=== PATIENT | female | born 1945 | race Caucasian/White ===

== ENCOUNTER 2021-12-08 14:01 | Emergency (ER) | payer MEDICARE, BC, SELFPAY ==
[2021-12-08 14:13] VITALS: BP 151/75; PULSE 71; RESP 20; TEMP 36.8; O2SAT 97; BMI 25.7
--- NOTE | 2021-12-08 14:35 | ED.GENADULT ---
HPI - General Adult General Time Seen by Provider: 14:35 Date Seen: 12/08/21 Chief complaint: Cough Stated complaint: Chest Tightness Time Seen by Provider: 12/08/21 14:13 Source: patient Mode of arrival: ambulatory Limitations: no limitations History of Present Illness HPI narrative: Patient is a 76 year white female who is very healthy, presents with a mild draw throat, postnasal drainage, cough over the last couple of days last night she coughed to the point she had trouble sleeping. She has no history of respiratory illness her respiratory disease. No asthma. No COPD. She has had no chest pain, no shortness of breath, no leg swelling or edema. She plans on seeing her regular doctor on Wednesday Related Data Previous Rx's Medication Instructions Recorded prednisone 20 mg tablet 20 mg PO BID #6 tabs 12/08/21 Allergies Allergy/AdvReac Type Severity Reaction Status Date / Time Sulfa (Sulfonamide Allergy Verified 12/08/21 14:21 Antibiotics) Review of Systems Status of ROS: Reports: 6 or more systems reviewed and unremarkable except as noted in History and below Exam Narrative: Exam Narrative: Objective: Patient's vital signs are largely unremarkable O2 sat is excellent HEENT is unremarkable Chest is clear no rales or wheezing pulse is regular good peripheral perfusion noted patient has a normal mental status, noncyanotic Const: Vital Signs, click to edit/add: Vital Signs - 24 hr 12/08/21 14:13 Temperature 98.2 F Pulse Rate [Pulse Oximeter] 71 Respiratory Rate 20 Blood Pressure [Ri ght Upper Arm] 151/75 H Pulse Oximetry 97 Oxygen Delivery Me thod Room Air Course Vital Signs Vital signs: Initial Vital Signs Temperature 98.2 F 12/08/21 14:13 Temperature Source Temporal Artery Scan 12/08/21 14:13 Pulse Rate 71 12/08/21 14:13 Pulse Rhythm 12/08/21 14:13 Respiratory Rate 20 12/08/21 14:13 Blood Pressure 151/75 H 12/08/21 14:13 Blood Pressure Mean 100 12/08/21 14:13 Pulse Oximetry 97 12/08/21 14:13 Oxygen Delivery Method 12/08/21 14:13 Vital Signs Temperature 98.2 F 12/08/21 14:13 Pulse Rate 71 12/08/21 14:13 Respiratory Rate 20 12/08/21 14:13 Blood Pressure 151/75 H 12/08/21 14:13 Pulse Oximetry 97 12/08/21 14:13 Oxygen Delivery Method 12/08/21 14:13 Temperature 98.2 F 12/08/21 14:13 Pulse Rate 71 12/08/21 14:13 Respiratory Rate 20 12/08/21 14:13 Blood Pressure 151/75 H 12/08/21 14:13 Pulse Oximetry 97 12/08/21 14:13 Oxygen Delivery Method 12/08/21 14:13 Medical Decision Making MDM Narrative Medical decision making narrative: Patient has had postnasal drainage some mild irritation in her throat and cough. Examination appears unremarkable, at this point I think this is an upper respiratory infection, but what may help is a couple day course of prednisone we will give her 20 mg b.i.d. x3 days, follow-up with her primary care doctor on Wednesday as planned. Lots of fluids rest Tylenol as needed and follow up sooner problems or concerns. Discharge Plan Discharge Clinical Impression: Acute cough, Acute upper respiratory infection Patient Disposition: Home, Self-Care Condition: Stable Additional Instructions: Rest, hydration, Tylenol as needed, prednisone 20 mg b.i.d. x3 days, update regular doctor Wednesday as planned, return sooner as needed Activity Level: No Restrictions Discharge Diet: Regular Prescriptions: New prednisone 20 mg tablet 20 mg PO BID Qty: 6 0RF Follow Up/Referrals: Colleen Du MD [Primary Care Provider] - Stand Alone Forms: [employer] Info Instructions
== END 2021-12-08 15:05 | disposition home or self-care (01) ==
LOC: ED 14:47
PROVIDERS: Emergency Provider Family Medicine; PCP Family Medicine
DX: J06.9 Acute upper respiratory infection, unspecified (principal)
CPT/HCPCS: 99283

== ENCOUNTER 2022-03-25 11:22 | Emergency (ER) | payer MEDICARE, BC, SELFPAY ==
[2022-03-25 11:27] VITALS: BP 205/72; PULSE 73; RESP 14; TEMP 36.4; O2SAT 100; BMI 25.5
[2022-03-25 11:47] LABS: Appearance Urine Clear (Clear); Bilirubin Urine Negative (Negative); Blood Urine Trace-lysed (Negative); Color Urine Yellow (Yellow); Glucose Urine Negative (Negative); Ketones Urine Negative (Negative); Leukocyte Esterase Urine 3+ (Negative); Nitrite Urine Positive (Negative); Protein Urine Negative (Negative); Specific Gravity Urine <= 1.005 (1.000-1.030); Urobilinogen Urine 0.2 (0.2-1.0); pH Urine 5.5 (5.0-8.5)
--- NOTE | 2022-03-25 11:53 | ED_ITS ---
HPI - General Adult General Time Seen by Provider: 11:53 Date Seen: 03/25/22 Chief complaint: Urogenital Problems, Female Stated complaint: Likely bladder infection Time Seen by Provider: 03/25/22 11:43 Source: patient Mode of arrival: ambulatory Limitations: no limitations History of Present Illness HPI narrative: Patient is a 76 year white female who is very pleasant who has a known rectocele, and has had occasional UTI in the past. Yesterday she did not feel quite right. She did have marked fever rigors. Did not have flank pain. But did have some mild suprapubic discomfort and urinary frequency, burning. 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 She had UTIs when she was flying more, but none recently. No vomiting or nausea. Related Data Previous Rx's Medication Instructions Recorded ciprofloxacin HCl 250 mg tablet 250 mg PO BID #10 tabs 03/25/22 (Cipro) Allergies Allergy/AdvReac Type Severity Reaction Status Date / Time nitrofurantoin Allergy rash, Verified 02/06/22 09:56 itching Sulfa (Sulfonamide Allergy Verified 02/06/22 09:56 Antibiotics) Review of Systems Status of ROS: Reports: 6 or more systems reviewed and unremarkable except as noted in History and below PFSH PFSH Medical History No significant past medical history Otalgia Surgical History H/O: hysterectomy History of shoulder surgery Social History Smoking Status: Never smoker How often do you have a drink containing alcohol: 2-4 times a month AUDIT-C Alcohol total score: 2 Non-prescribed substance use: denies use Exam Narrative: Exam Narrative: Objective: Vital signs unremarkable other than blood pressure elevated Patient will monitor blood pressure over the next couple of days and discuss that with her doctor. Negative CVA tenderness mild suprapubic tenderness patient is alert or x3 no distress, afebrile Const: Vital Signs, click to edit/add: Vital Signs - 24 hr 03/25/22 11:27 Temperature 97.6 F Pulse Rate [Pulse Oximeter] 73 Respiratory Rate 14 Blood Pressure [Ri ght Upper Arm] 205/72 H Pulse Oximetry 100 Oxygen Delivery Me thod Room Air Course Vital Signs Vital signs: Initial Vital Signs Temperature 97.6 F 03/25/22 11:27 Temperature Source Temporal Artery Scan 03/25/22 11:27 Pulse Rate 73 03/25/22 11:27 Respiratory Rate 14 03/25/22 11:27 Blood Pressure 205/72 H 03/25/22 11:27 Blood Pressure Mean 116 03/25/22 11:27 Pulse Oximetry 100 03/25/22 11:27 Oxygen Delivery Method 03/25/22 11:27 Vital Signs Temperature 97.6 F 03/25/22 11:27 Pulse Rate 73 03/25/22 11:27 Respiratory Rate 14 03/25/22 11:27 Blood Pressure 205/72 H 03/25/22 11:27 Pulse Oximetry 100 03/25/22 11:27 Oxygen Delivery Method 03/25/22 11:27 Temperature 97.6 F 03/25/22 11:27 Pulse Rate 73 03/25/22 11:27 Respiratory Rate 14 03/25/22 11:27 Blood Pressure 205/72 H 03/25/22 11:27 Pulse Oximetry 100 03/25/22 11:27 Oxygen Delivery Method 03/25/22 11:27 Medical Decision Making MDM Narrative Medical decision making narrative: Patient is symptomatic with urinary tract infection very likely. Will check a urinalysis. Urine culture. Will treat with Rocephin IM and Cipro orally. Patient should follow-up she is not better in the next 12:48 p.m. as needed. She was comfortable plan. Lab Data Labs: Lab Results 03/25/22 Range/Units 11:23 Urine Color Yellow (Yellow) Urine Appearance Clear (Clear) Urine pH 5.5 (5.0-8.5) Ur Specific [place] <= 1.005 (1.000-1.030) Urine Protein Negative (Negative) Urine Glucose (UA) Negative (Negative) Urine Ketones Negative (Negative) Urine Blood Trace-lysed A (Negative) Urine Nitrite Positive A (Negative) Urine Bilirubin Negative (Negative) Urine Urobilinogen 0.2 (0.2-1.0) Ur Leukocyte Esterase 3+ A (Negative) Urine RBC 0-2 (0-2) Urine WBC 10-25 A (0-5) Ur Squamous Epith Cells Few (None-Few) Urine Bacteria Many A (None) Discharge Plan Discharge Clinical Impression: Urinary tract infection Patient Disposition: Home, Self-Care Condition: Stable Instructions: Urinary Tract Infection in Older Adults (ED) Additional Instructions: Light activity, rest fluids, Cipro 2 times a day start today x5 days. Update regular physician as needed, return to ED not improving in the next 12:48 p.m.. Activity Level: Light activity Discharge Diet: Regular Prescriptions: New ciprofloxacin HCl [Cipro] 250 mg tablet 250 mg PO BID Qty: 10 0RF Follow Up/Referrals: Colleen Du MD [Primary Care Provider] - Stand Alone Forms: [employer] Info Instructions
[2022-03-25 12:01] LABS: Bacteria Urine Many; RBC Urine 0-2 (0-2); Squamous Epithelial Cell Urine Few (None-Few)
--- OUTSIDE RECORDS SUMMARY | 2022-03-25 12:02 | XMS_ITS | Clinical Summary ---
:1945 Author Organization [facility] Address [place] [address] Care Team Providers Name Role Phone Colleen Du MD Primary Care Provider [phone] Sanjana Morin AuD Unavailable [phone] Allergies Active Allergy Reactions Severity Noted Date Comments Nitrofurantoin Itching 03/20/2008 Sulfa (Sulfonamide Antibiotics) 7 Medications Medication Sig Dispensed Refills Start Date End Date Status multivitamin (MVI) Take 1 tablet by 0 09/06/2009 Active tabletIndications: mouth once daily. Routine general medical examination at a health care facility cholecalciferol Take 1 capsule by 0 02/04/2016 Active (VITAMIN D-3) 2,000 mouth once daily. unit capsule cyanocobalamin (VITAMIN Daily 0 Active B12) 500 mcg tablet aluminum chloride Apply topically 50 mL 3 12/12/2021 Active (Drysol) 20 % external to affected solutionIndications: area(s) at Excessive sweating, bedtime. local fluticasone (50 mcg per Inhale 2 Sprays 16 g 0 12/12/2021 Active actuation) nasal to both nostrils solution once daily. (FLONASE)Indications: Acute non-recurrent frontal sinusitis Active Problems Problem Noted Date Sensorineural hearing loss, bilateral 01/14/2017 Screen for colon cancer 08/12/2010 Overview: Colonoscopy 07/2010 normal repeat in 10 y ears Acute gastritis without mention of hemorrhage 04/29/19 11 Reflux esophagitis 06/06/2009 Overview: EGD 07/2008 Reactive gastropathy Rectocele 05/29/2008 Urinary incontinence, stress 05/29/2008 Immunizations Name Administration Dates Next Due AMB INFLUENZA IIV3 (AGE 65+ YRS) PF 02/12/2018 (Flu Clinic Only) AMB Influenza, IIV3 (Age >=3 years) 02/10/2012 Preserve Free (Flu Clinic Only) AMB Influenza, IIV3 (Age >=3 02/09/2011, 03/06/2010, 009, years)(Flu Clinic Only) 03/27/2008 COVID-19 vaccine (dilitronics 07/06/2020 30mcg/0.3mL) PF, MDV Influenza A (H1N1), Inactivated 06/06/2009 Influenza A (H1N1), Inactivated (Age 0206/06/2009 >=3 Years) Influenza, High-dose Inactivated 02/04/2016, 01/29/2015, 05/2013 Influenza, High-dose Quadrivalent 01/25/2021 Inactivated Influenza, IIV3 (Age 6-35 mos) 02/10/2012, 02/09/2011 Influenza, IIV3 (Age >=3 years) 01/24/2013, 03/06/2010, 01/24, 03/27/2008, 02/25/2007, 03/01/2006, 03/14/2005, 03/09/2003 Influenza, IIV4 06/06/2009 Influenza, IIV4 (=>6mos) MDV 01/22/2020 Influenza, Inactivated IIV3 (Age 65+ 01/27/2019, 02/04/2017 Years) Preserv Free Pneumococcal Poly,23-Valent 02/10/2012 (Pneumovax) Pneumococcal conj 13-Valent (Prevnar 02/04/2016 13) Td (Age >=7 Years) 12/07/2018, 08/19/1994 Tdap 05/14/2008 Zoster (Shingrix-RZV, recombinant) 07/22/2018, 05/21/2018 Zoster (Zostavax-ZVL, live) 02/25/2007 Family History Medical History Relation Name Comments Cancer Brother 7 lung x2, brain Cancer Brother 8 Brain Cancer Father Lung Aortic aneurysm Mother AAA, at 88 Diabetes Mother age 82 Cancer-breast Other 1 niece x3 Cancer-breast Other 2 Cancer-colon Other 2 niece, nephew Cancer-breast Paternal Aunt Cancer-breast Sister 3 Cancer Sister 4 Lung Relation Name Status Comments Brother 1 Vito (Age 65) Lung CA Brother 2 Vijay (Age 37) Cerberal Hemmo rage Brother 3 Osmar Alive Brother 4 Ronald (Age 62) Cancer Brother 5 Jaxson Alive Brother 6 Regulo (Age 72) Brain Tumor Brother 7 Brother 8 Daughter 1 Nanda Alive Daughter 2 Jessie Alive Father (Age 78) Lung & Pancrea tic Cancer Mother (Age 88) Other 1 niece Other 2 Paternal Aunt Sister 1 Miley (Age 75) Lung CA Sister 2 Madisyn (Age 40) Breast CA Sister 3 Sister 4 Social History Tobacco Use Types Packs/Day Years Used Date Never Smoker Smokeless Tobacco: Never Used Tobacco Cessation: Counseling Given: Yes Alcohol Use Standard Drinks/Week Comments Yes 1.7 (1 standard drink = 0.6 oz pure very little-- 1-2 drinks per week alcohol) Alcohol Habits Answer Date Recorded How often do you have a drink 2-4 times a month 03/12/2020 containing alcohol? How many drinks containing alcohol do 1 or 2 you have on a typical day when you are drinking? How often do you have six or more Never 2019 drinks on one occasion? Comment: very little-- 1-2 drinks per week 2013 Sex Assigned at Date Recorded Not on file Obstetrics History Para Term AB IAB SAB Ectopic Multiple Living Live Births 2 2 2 2 Date Outcome GA Total Labor/2nd/3rd Weight Sex Delivery Anes PTL Teresa A 1 A5 Name Clin Labor Term Term Last Filed Vital Signs Vital Sign Reading Time Taken Comments Blood Pressure 149/76 12/12/2021 8:45 AM CDT Pulse 71 12/12/2021 8:41 AM CDT Temperature 36.9 ??C (98.5 ??F) 05/17/2020 8:35 AM [employer] Respiratory Rate 18 09/28/2014 11:15 AM CDT Oxygen Saturation 99% 12/12/2021 8:41 AM CDT Inhaled Oxygen Concentration - - Weight 66 kg (145 lb 6.4 oz) 12/12/2021 8:41 AM CDT Height 160 cm (5' 2.99) 04/11/2021 8:39 AM [employer] Body Mass Index 25.76 04/11/2021 8:39 AM [employer] Plan of Treatment Upcoming Encounters Date Type Specialty Care Team Description 04/14/2022 Office Visit Colleen Du MD [address] [place] [id number] (Wo rk) 04/14/2022 Ancillary Procedure Health Maintenance Due Date Last Done Comments COVID-19 vaccine series (4 - 03/24/2021 01/27/2021, 021, Booster for Pfizer series) 07/06/2020 Influenza for age 65+ 12/25/2021 01/25/2021, 01/22/2020, 01/27/2019, Additional history exists BMI (ht and wt on same day) for 04/11/2022 04/11/2021, 04/27, age 18+ 03/12/2020, Additional history exists Depression screening for age 12+ 04/11/2022 04/11/2021, , 03/12/2020, Additional history exists Medicare Wellness for age 65+ 04/11/2022 04/11/2021, 2019, 03/09/2019, Additional history exists Tetanus booster 12/07/2028 12/07/2018, 05/14/2008, 08/19/1994 Tdap Completed 05/14/2008 Pneumococcal series for age 65+ Completed 02/04/2016, 01/24 Zoster (shingles) series for age Completed 07/22/2018, , 50+ 02/25/2007 Hepatitis C screening for age Completed 03/09/2019 18-79 DEXA/DXA scan for age 65+ Completed 03/13/2020, 02/23/2017 , 06/23/2012, Additional history exists Results Not on filefrom Last 3 Months Insurance Payer Benefit Plan / Subscriber ID Effective Dates Phone Addre ss Type Group BLUE CROSS MR BLUE CROSS [id number] 2021-Present [address] [address] [place] [facility] [place] MR PB ONLY [id number] Advance Directives Documents on File Type Date Recorded Patient Outpatient Surgery Rn Explanati on Healthcare Directive 11/19/2015 8:24 AM DYAN ESCOBAR, 06/19/2009 Care Teams Res Counselor Relationship Specialty Start Date End Date Colleen Du MD PCP - General 09/07/05 [address] [place] [address] Sanjana Morin AuD Audiology 01/14/17 [address] [place] [place] [address]
[2022-03-25] MEDS: cefTRIAXone 250 MG VIAL IM (12:14)
[2022-03-25] MEDS: LIDOCAINE 1% 5 ml (pf) 5 ML VIAL 0.9 ML IM (12:14)
== END 2022-03-25 12:16 | disposition home or self-care (01) ==
LOC: ED 12:00
PROVIDERS: Emergency Provider Family Medicine; PCP Family Medicine
DX: N39.0 Urinary tract infection, site not specified (principal)
CPT/HCPCS: 81001; 87086; 87186; 96372; 99283; J0696

== ENCOUNTER 2023-06-09 08:48 | Outpatient (CLI) | payer MEDICARE, BC, SELFPAY ==
--- OUTSIDE RECORDS SUMMARY | 2023-06-09 08:51 | XMS_ITS | Clinical Summary ---
Author Name Unknown Organization [facility] Address [place], [place] [address] Care Team Providers Care Rod Puller Name Role Phone Colleen Du MD Primary Care Provide r Sanjana Morin Unavailable [phone] Allergies Active Allergy Reactions Criticality Noted Date Comments Nitrofurantoin Itching 03/20/2008 Sulfa (Sulfonamide Antibiotics) 10/25 Medications Medication Sig Dispensed Refills Start Date End Date Status multivitamin (MVI) tabletIndications: Routine general medical examination at a health care facility Take 1 tablet by mouth once daily. 0 09/06/2009 Active cholecalciferol (VITAMIN D-3) 2,000 unit capsule Take 1 capsule by mouth once daily. 0 02/04/2016 Active cyanocobalamin (VITAMIN B12) 500 mcg tablet Daily 0 Active azithromycin (Zithromax Z-Reagan) 250 mg tabletIndications: Purulent postnasal drainage Take 500 mg today and then 250 mg days 2-5 6 Tablet 0 05/11/2023 Active fluticasone (50 mcg per actuation) nasal solution (FLONASE)Indicatio ns:Acute non-recurrent frontal sinusitis Inhale 2 Sprays to both nostrils once daily. 16 g 0 12/12/2021 05/11/2023 Discontinued (*Med complete/Reg imen complete/Lev el of care change) Active Problems Problem Noted Date Diagnosed Date Sensorineural hearing loss, bilateral 01/14/2017 Screen for colon cancer 08/12/2010 Overview: Colonoscopy 07/2010 normal repeat in 10 years Acute gastritis without mention of hemorrhage Reflux esophagitis 06/06/2009 Overview: EGD 07/2008 Reactive gastropathy Rectocele 05/29/2008 Urinary incontinence, stress 05/29/2008 Encounters Date Type Department Care Team Description 05/17/2023 Telephone [facility] [address] [place] [address] Colleen Du MD Results 05/13/2023 11:00 AM [employer] Ancillary Procedure [facility] [address] [place] [address] 05/13/2023 Travel 05/11/2023 9:00 AM [employer] Ancillary Procedure [facility] [address] [place] [address] 05/11/2023 8:00 AM [employer] Office Visit [facility] [address] [place] [address] Colleen Du MD Medicare ANNUAL (subsequent) Visit (77 yo Female/Seems to be hoarse a lot. Tried the steroid and did not seem to help. Had a cold over Deanne. Tried sudafed last night./Recheck left ear./No overhead strength in arms. Bones seem sore, DEXA?) 05/11/2023 Travel 04/15/2023 8:20 AM [employer] Ancillary Procedure [facility] [address] [place] [address] 04/15/2023 Travel from Last 3 Months Immunizations Name Administration Dates Next Due AMB INFLUENZA IIV3 (AGE 65+ YRS) PF (Flu Clinic Only) 02/12/2018 AMB Influenza, IIV3 (Age >=3 years) Preserve Free (Flu Clinic Only) 02/10/2012 AMB Influenza, IIV3 (Age >=3 years)(Flu Clinic Only) 02/09/2011,03/06/2010,02/08/2009,2007 COVID-19 vaccine (Venturepax 30mcg/0.3mL) PFMDV 07/06/2020 Influenza A (H1N1), Inactivated 06/06/2009 Influenza A (H1N1), Inactiva coby (Age >=3 Years) 06/06/2009 Influenza, High-dose Inactivated 02/04/2016,09/2014,01/25/2014 Influenza, High-dose Quadriv alent Inactivated 02/15/2023,03/09/2022,01/25/2021 Influenza, IIV3 (Age 6-35 mos) 02/10/2012,2010 Influenza, IIV3 (Age >=3 years) 01/25/20 13,03/06/2010,02/08/2009,2007,02/25/2007,03/01/2006,03/14/2005,1 05/09/2002 Influenza, IIV4 06/06/2009 Influenza, IIV4 (=>6mos) MDV 01/22/2020 Influenza, Inactivated IIV3 (Age 65+ Years) Preserv Free 01/27/2019,02/04/2017 Pneumococcal Poly,23-Valent (Pneumovax) 02/10/2012 Pneumococcal conj 13-Valent (Prevnar 13) 02/04/2016 Td (Age >=7 Years) 12/07/2018,08/19/1994 Tdap 05/14/2008 Zoster (Shingrix-RZV, recombinant) 07/22/2018, Zoster (Zostavax-ZVL, live) 02/25/2007 Family History Medical History Relation Name Comments Cancer Brother 7 lung x2, brain Cancer Brother 8 Brain Cancer Father Lung Aortic aneurysm Mother AAA, at 88 Diabetes Mother age 82 Cancer-breast Other 1 niece X3 all from th e sister that had breast ca Cancer-breast Other 2 Cancer-colon Other 2 niece, nephew Cancer-breast Paternal Aunt Cancer-breast Sister 3 Cancer Sister 4 Lung Relation Name Status Comments Brother 1 Vito (Age 65) Lung CA Brother 2 Vijay (Age 37) Cerberal H emmorage Brother 3 Osmar Alive Brother 4 Ronald (Age 62) Cancer Brother 5 Jaxson Alive Brother 6 Regulo (Age 72) Brain Tumo r Brother 7 Brother 8 Daughter 1 Nanda Alive Daughter 2 Jessie Alive Father (Age 78) Lung & Jauregui creatic Cancer Mother (Age 88) Other 1 niece Other 2 Paternal Aunt Sister 1 Miley (Age 75) Lung CA Sister 2 Madisyn (Age 40) Breast CA Sister 3 Sister 4 Social History Tobacco Use Types Packs/Day Years Used Date Smoking Tobacco: Never Passive Smoke Exposure: Past Smokeless Tobacco: Never Tobacco Cessation:Counseling Given: Not Answered Alcohol Use Standard Drinks/Week Comments Yes 1.7 (1 standard drin k = 0.6 oz pure alcohol) very little-- 1-2 drinks per week PHQ-2 Answer Date Recorded PHQ-2 TOTAL SCORE 0 05/11/2023 Social Connections Answer Date Recorded Frequency of Communication with Friends and Fami ly 0 01/28/2023 Financial Resource Strain Answer Date R ecorded Difficulty of Paying Living Expenses 3 01/28/2023 Difficulty of Paying Living Expenses Not on file 01/28/2023 Food Insecurity Answer Date Recorded Worried About Running Out of Food in the Last Ye ar 1 01/28/2023 Transportation Needs Answer Date Record ed Lack of Transportation (Medical) 1 01/28/2023 Housing Stability Answer Date Recorded Unable to Pay for Housing in the Last Year 1 01/28/2023 Sex and Gender Information Value Date Recorded Sex Assigned at Not on file Gender Identity Not on file Sexual Orientation Not on file Obstetrics History Para Term AB IAB SAB Ectopic Multiple Livin g Live Births 2 2 2 2 Date Outcome GA Total Labor Labor/2nd/3rd Weight Sex Delivery Anes PTL Teresa A1 A5 Name Cl in Term Term Last Filed Vital Signs Vital Sign Reading Time Taken Comments Blood Pressure 133/75 05/11/2023 8:02 AM [employer] Pulse 68 05/11/2023 8:02 AM [employer] Temperature 36.8 ??C (98.2 ??F) 11/12/2022 8:33 AM CD T Respiratory Rate 18 09/28/2014 11:15 AM CDT Oxygen Saturation 98% 05/11/2023 8:02 AM [employer] Inhaled Oxygen Concentration - - Weight 68.6 kg (151 lb 4.8 oz) 05/11/2023 8:02 A M [employer] Height 161.9 cm (5' 3.75) 05/11/2023 8:02 AM CS T Body Mass Index 26.17 05/11/2023 8:02 AM [employer] Plan of Treatment Upcoming Encounters Date Type Department Care Team (Late st Contact Info) Description 07/08/2023 9:00 AM CDT Office Visit [address] [place] [address] Araceli Garcia MD [address] [facility] [address] [place] [address] Health Maintenance Due Date Last Done Comments COVID-19 vaccine series (2022-24 season) 2022 03/30/2022, 01/27/2021, 07/30/2020, Additional history exists BMI (ht and wt on same day) for age 18+ 05/11/2024 05/11/2023, 04/14/2022, 04/11/2021, Additional history exists Medicare Wellness for age 65+ 05/11/2024, 04/14/2022, 04/11/2021, Additional history exists Depression screening for age 12+ 05/13/2024 05/13/2023, 05/11/2023, 04/14/2022, Additional history exists Tetanus booster 12/07/2028 12/07/2018, 04/26, 08/19/1994 Tdap Completed 05/14/2008 Pneumococcal series for age 65+ Completed 6, 02/10/2012 Zoster (shingles) series for age 50+ Completed 07/22/2018, 05/21/2018, 02/25/2007 Hepatitis C screening for ag e 18-79 Completed 03/09/2019 Influenza for age 65+ Completed 02/15/2023 , 03/09/2022, 01/25/2021, Additional history exists DEXA/DXA scan for age 65+ Completed 2023, 03/13/2020, 02/23/2017, Additional history exists Procedures Procedure Name Priority Date/Time Associated Diagnosis Comments XR DXA BONE DENSITY 2 SITES AXIAL Routine 05/13/2023 11:05 AM [employer] Menopause VITAMIN D 25 (DEFICIENCY) Routine 05/11/2023 9:25 AM [employer] Vitamin D deficiency GLUCOSE, FASTING Routine 05/11/2023 9:25 AM [employer] Screening for diabetes mellitus LIPID PANEL W REFLEX MEASURED LDL Routine 05/11/2023 9:25 AM [employer] Lipid screening XR SHOULDER 3 VIEWS RIGHT Routine 05/11/2023 9:16 AM [employer] Bilateral shoulder pain, unspecified chronicity XR MAMMO BLAINE BILAT SCREEN Routine 04/15/2023 8:38 AM [employer] Visit for screening mammogram from Last 3 Months Results * (ABNORMAL) XR DXA BONE DENSITY 2 SITES AXIAL (05/13/2023 11:05 AM [employer]) Anatomical Region Laterality Modality Spine, HIPS, HIPL, HIPR Other Impressions 05/25/2023 2:25 PM [employer] Osteopenia. RECOMMENDATIONS: The National Osteoporosis Foundation recommends pharmacologic treatment for patients with T-scores of -2.5 or less, patients with prior history of fragility fractures, or patients with 10-year probability of greater than 3% at hips or greater than 20% of suffering major osteoporotic fractures. Recommend continued optimization of calcium and vitamin D intake through dietary means and/or supplementation and regular exercise. Consider pharmacologic therapy for osteopenia with increased fracture risk. Follow-up bone density reading in 2 years if therapy initiated to assess therapeutic efficacy. ??Can also consider maximizing calcium intake and vitamin d along with weight bearing exercise given hip fracture probability just at 3%. ?? Kristen Chu PA-C [facility] 05/25/2023 Narrative 05/25/2023 2:25 PM [employer] For Patients: Results are automatically released to your [facility] account once available, in compliance with federal regulations. This means that you may see your results before your provider has had a chance to review them. Please allow 2-3 business days for your provider to comment on the results. XR DXA Bone Mineral Density (BMD) EXAM LOCATION: [address] [address] PATIENT NAME: Berna Hernandez DATE OF : 1945 EXAM DATE: 05/13/2023 REQUESTING PROVIDER: Colleen Du MD GENDER AT : female HEIGHT: 5' 3.75 (05/11/2023) WEIGHT: ??151 lb 4.8 oz (05/11/2023) MENOPAUSAL STATUS: Postmenopausal RACE/ETHNICITY: White RISK FACTORS: White Race CURRENT MEDICATION FOR BONE LOSS: NONE INDICATION: Menopause COMPARISON DATE(S): 2019 DXA scans are compared to prior studies for a patient only when the two (or more) studies were performed on the same scanner. It is not possible to compare data generated on one scanner to data from another because there are not standards in DXA equipment. This applies even if the two scanners are made by the same animal shelter worker. PROCEDURE: Dual-energy x-ray absorptiometry performed with routine technique. Reporting is completed in the form of a T-score. The T-score represents the standard deviation from peak bone mass based on young healthy adult. A Z-score is used for diagnosis in premenopausal women, and for men under the age of 50. FINDINGS: RESULT LUMBAR SPINE L1 - L4 BMD: 1.328 g/cm2 T-Score: + 1.2 Z-Score: + 2.9 Change from prior in 2019: ??Increase 4.2%. RESULTS FEMUR Left femoral neck BMD: 0.867 g/cm2 T-Score: - 1.2 Z-Score: + 0.8 Change from prior in 2020: ??Increase 0.7%. Right femoral neck BMD: 0.830 g/cm2 T-Score: - 1.5 Z-Score: + 0.5 Change from prior in 2020: ??Decrease 0.7%. Left hip BMD: 0.847 g/cm2 T-Score: - 1.3 Z-Score: + 0.6 Change from prior in 2020: ??Decrease 3.1%. Right hip BMD: 0.871 g/cm2 T-Score: - 1.1 Z-Score: + 0.8 Change from prior in 2020: ??Decrease 3.0%. WHO criteria: Normal: T-score at or above -1 SD Osteopenia: T-score between -1.1 and -2.4 SD Osteoporosis: T-score at or below -2.5 SD FRAX RISK CALCULATION (USED FOR OSTEOPENIA ONLY): 10-year probability of major osteoporotic fracture: 13.1%. 10-year probability of hip fracture: 3.0%. Colleen Du MD DEXA * (ABNORMAL) LIPID PANEL W REFLEX MEASURED LDL (05/11/2023 9:25 AM [employer]) CHOLESTEROL,TOTAL 235(H) 100 - 199 mg/dL 05/11/2023 6:36 PM [employer] [facility] Comment: Cholesterol, Total Reference Ranges Desirable <200 mg/dL Borderline 200-239 mg/dL High >=240 mg/dL TRIGLYCERIDES 67 <150 mg/dL 05/11/2023 6:36 PM [employer] [facility] HDL CHOLESTEROL 82 >40 mg/dL 6:36 PM [employer] [facility] NON-HDL CHOLESTEROL 153(H) <145 mg/dl 05/11/2023 6:36 PM [employer] [facility] CHOL/HDL RATIO 2.87 <4.50 05/11/2023 6:36 PM [employer] [facility] LDL CHOLESTEROL 140(H) <=130 mg/dL 05/11/2023 6:36 PM [employer] [facility] VLDL CHOLESTEROL 13 <=30 mg/dL 05/11/2023 6:36 PM [employer] [facility] PROVID[facility] ORDERED STATUS RANDOM 05/11/2023 6:36 PM [employer] [facility] Blood BLOOD SPECIMEN / Unknown Venipuncture / Unknown 05/11/2023 9:25 AM [employer] 05/11/2023 9:26 AM [employer] Colleen Du MD CHEMISTRY [facility] [address] [place] [address], * VITAMIN D 25 (DEFICIENCY) (05/11/2023 9:25 AM [employer]) VITAMIN D TOTAL 22.0 20.0 - 80.0 ng/mL 05/11/2023 6:36 PM [employer] [facility] Blood BLOOD SPECIMEN / Unknown Venipuncture / Unknown 05/11/2023 9:25 AM [employer] 05/11/2023 9:26 AM [employer] Narrative [facility] - 05/11/2023 6:36 PM [employer] ? Vitamin D Status Deficiency: ? <20 ng/mL Insufficiency: ?20-29 ng/mL Sufficiency: ?30-80 ng/mL Possible Toxicity: ??>80 ng/mL Based on [place] of Medicine recommendations Biotin supplements may cause clinically significant interference for this test assay. ??If interference is suspected, it is strongly recommended that biotin is discontinued for at least one week prior to retesting. Colleen Du MD SEND OUTS [facility] [address] [place] [address], [place] * GLUCOSE, FASTING (05/11/2023 9:25 AM [employer]) GLUCOSE 90 70 - 99 mg/dL 05/11/2023 9:55 AM [employer] [facility] Blood BLOOD SPECIMEN / Unknown Venipuncture / Unknown 05/11/2023 9:25 AM [employer] 05/11/2023 9:26 AM [employer] Colleen Du MD CHEMISTRY [facility] [address] [place] [address], [place] [phone] * XR SHOULDER 3 VIEWS RIGHT (05/11/2023 9:16 AM [employer]) Anatomical Region Laterality Modality SHOULDERS, SHOULDER R Computed R adiography 05/12/2023 5:11 AM [employer] Impressions 05/12/2023 5:11 AM [employer] 1. Severely narrowed acromiohumeral interval, a finding seen with full-thickness rotator cuff tendon tearing. 2. Degenerative changes. Dictated by García Moyer MD @ 05/12/2023 5:11:11 AM (Electronically Signed) Narrative 05/12/2023 5:11 AM [employer] For Patients: ??As a result of the 21st Century Cures Act, medical imaging exams and procedure reports are released immediately into your electronic medical record. ??You may view this report before your referring provider. ??If you have questions, please contact your health care provider. HISTORY: Right shoulder pain. TECHNIQUE: Three views of the right shoulder. COMPARISON: 05/31/2014. FINDINGS: There is superior subluxation of the humeral head with severely narrowed acromiohumeral interval, a finding seen in the setting of full-thickness rotator cuff tendon tearing. Mild glenohumeral joint degenerative changes. Mild AC joint degenerative changes. There is no acute fracture or dislocation. Procedure Note García Moyer MD - 05/12/2023 For Patients: As a result of the Cures Act, medical imagingexams and procedure reports are released immediately into your electronicmedical record. You may view this report before your referring provider.If you have questions, please contact your health care provider. HISTORY: Right shoulder pain. TECHNIQUE: Three views of the right shoulder. COMPARISON: 05/31/2014. FINDINGS: There is superior subluxation of the humeral head with severely narrowedacromiohumeral interval, a finding seen in the setting of full-thicknessrotator cuff tendon tearing. Mild glenohumeral joint degenerative changes.Mild AC joint degenerative changes. There is no acute fracture ordislocation. IMPRESSION: 1. Severely narrowed acromiohumeral interval, a finding seen withfull-thickness rotator cuff tendon tearing. 2. Degenerative changes. Dictated by García Moyer MD @ 05/12/2023 5:11:11 AM (Electronically Signed) Colleen Du MD GENERAL IMAGI NG * XR MAMMO BLAINE BILAT SCREEN (04/15/2023 8:38 AM [employer]) Anatomical Region Laterality Modality BREASTS, Breast Left, Breast Right Bilateral Mammography Impressions 04/16/2023 9:07 AM [employer] ??There is no radiographic evidence for malignancy. ??Recommend annual mammograms. MAMMOGRAM ASSESSMENT: ??ACR 1 Negative PATIENTS: You will also receive a letter with your examination results in an easy to read format. ??If you have questions about your results, please contact your referring provider. Narrative 04/16/2023 9:07 AM [employer] For Patients: As a result of the Century Cures Act, medical imaging exams and procedure reports are released immediately into your electronic medical record. You may view this report before your referring provider. If you have questions, please contact your health care provider. XR MAMMO BLAINE BILAT SCREEN [[id number]] CLINICAL HISTORY: ??This is an asymptomatic 77 y.o. patient. INDICATION FOR EXAM: Mammogram Screening. TECHNIQUE: CC & MLO views were obtained. ??This study was evaluated with the assistance of Computer-Aided Detection. Breast Tomosynthesis was used in interpretation. COMPARISON FILM: Yes 04/14/22 [facility] 03/14/21 [facility] FINDINGS: ??The breasts have scattered areas of fibroglandular density. There are no dominant masses, suspicious micro calcifications or areas of architectural distortion. Colleen Du MD MAMMO from Last 3 Months Advance Directives Documents on File Type Date Recorded Patient Line Maintenance Technician Expl anation Healthcare Directive 11/19/2015 8:24 AM [facility], 06/19/2009 Care Teams Rod Puller Relationship Specialty Start Date End Date Colleen Du MD [address] [place] [address] PCP - General 09/07/05 Sanjana Morin AuD [address] [place] [address] Audiology 01/14/17
--- NOTE | 2023-06-09 09:15 | MR_ITS ---
[facility] [address] [facility] [address] Phone:?[phone] Fax:?[phone] Referring Physician Information: Otis Inman M.D. [address] [facility] [address] Phone:?[phone] Fax:?[phone] Patient:?Berna Hernandez D.O.B:?1945 Sex:?Female Phone:?[phone] [facility] MRN:?[id number] Exam Date:?06/09/2023 EXAM: MRI EXAMINATION OF THE RIGHT SHOULDER CLINICAL INFORMATION: Right shoulder pain. No history of surgery to this area. Possible rotator cuff tear. TECHNICAL INFORMATION: Coronal STIR as well as axial, sagittal and coronal PD and T2-weighted images acquired. No prior studies for comparison. INTERPRETATION: Bones: There is no Hill-Sachs impaction deformity. No other evidence for an occult fracture or osseous contusion. Rotator Cuff: Complete ruptures involving the entirety of the supraspinatus and infraspinatus tendons. Maximal tendon retraction is to the level of the glenoid neck. Moderate to marked supraspinatus and marked infraspinatus fatty muscle belly atrophy. The teres minor tendon is intact. There is a 2.1 cm craniocaudal full-thickness tear involving the mid to superior subscapularis tendon. Coracoacromial arch: Elevation of the humeral head in relation to the adjacent glenoid. The bony acromiohumeral interval is nearly obliterated. Acromioclavicular joint: Mild AC joint DJD. Biceps tendon: There is a more chronic appearance of intra-articular long head biceps tendon disruption. Glenohumeral joint and labrum: There is a small to moderate glenohumeral joint effusion. Series 8 image 13 as well as series 4 image 17 demonstrate a 9 mm loose body off the superior posterior joint. Broad thinning of the trochlear cartilage without evidence for full-thickness loss involving the humeral head. There are mild changes of osteophytic spurring. Tearing and fraying involves the superior labrum. There is tearing involving the posterior inferior labrum. No discrete paralabral cyst is identified. CONCLUSION: 1. Complete supraspinatus and infraspinatus tendon ruptures. Maximal tendon retraction is to the level of the glenoid neck. Moderate to marked supraspinatus and marked infraspinatus fatty muscle belly atrophy. 2. There is a moderate-sized full-thickness tear involving the subscapularis tendon. 3. Elevation of the humeral head with marked narrowing of the acromiohumeral interval. 4. More chronic appearing long head biceps tendon disruption. 5. There is a small to moderate glenohumeral joint effusion. There is a 9 mm loose body off the superior posterior joint. 6. Glenohumeral joint osteoarthritis and mild osteophytic spurring. Broad thinning of the articular cartilage without evidence for full-thickness loss involving the humeral head. KES Electronically signed on 06/09/2023 11:56:00 AM by Pete Flores M.D.
== END 2023-06-09 08:49 | disposition home or self-care (01) ==
LOC: MRI 08:49
PROVIDERS: PCP Family Medicine; Visit Provider Orthopaedic Surgery Sports Medicine
DX: M25.511 Pain in right shoulder (principal); M75.101 Unspecified rotator cuff tear or rupture of right shoulder, not specified as traumatic; M75.121 Complete rotator cuff tear or rupture of right shoulder, not specified as traumatic; M25.411 Effusion, right shoulder; M19.011 Primary osteoarthritis, right shoulder
CPT/HCPCS: 73221

== ENCOUNTER 2023-06-11 08:45 | Outpatient (RCR) | payer MEDICARE, BC, SELFPAY | END 2023-08-26 14:03 | disposition home or self-care (01) | PROVIDERS: PCP Family Medicine; Visit Provider Family Medicine | DX: M25.511 Pain in right shoulder (principal); M25.512 Pain in left shoulder; M77.8 Other enthesopathies, not elsewhere classified; M62.81 Muscle weakness (generalized); Z51.89 Encounter for other specified aftercare | CPT/HCPCS: 97110; 97140; 97161 ==

== ENCOUNTER 2024-02-23 06:56 | Day surgery (SDC) | payer MEDICARE, BC, SELFPAY ==
[2024-02-23] VITALS (24 sets, daily range): BP systolic 99–175; BP diastolic 54–106; PULSE 58–79; RESP 16–24; TEMP 36.2–36.7; O2SAT 96–99; BMI 26.9
--- OUTSIDE RECORDS SUMMARY | 2024-02-23 07:00 | XMS_ITS | Clinical Summary ---
Author Organization [facility] Address [place], [place] [address] Care Team Providers Care Comic Book Writer Name Role Phone Colleen Du MD Primary Care Provide r Sanjana Recinos Unavailable [phone] Allergies Active Allergy Reactions Criticality Noted Date Comments Nitrofurantoin Itching 03/20/2008 Sulfa (Sulfonamide Antibiotics) 10/25 Medications Medication Sig Dispensed Refills Start Date End Date Status multivitamin (MVI) tabletIndications :Routine general medical examination at a health care facility Take 1 tablet by mouth once daily. 0 09/06/2009 Active cholecalciferol (VITAMIN D-3) 2,000 unit capsule Take 1 capsule by mouth once daily. 0 02/04/2016 Active cyanocobalamin (VITAMIN B12) 500 mcg tablet Daily Active calcium carbonate-vitamin D3, 500 mg-400 units, (OSCAL 500 + D) tablet Take 1 Tablet by mouth two times daily before meals. 08/10/2023 Active esomeprazole (NEXIUM) 40 mg capsuleIndication s:Chronic GERD Take 1 Capsule (40 mg) by mouth once daily before a meal. 90 Capsule 3 09/16/2023 Active polyethylene glycol-electrolyt e (GOLYTELY) 236-22.74-6.74 -5.86 gram suspensionIndicat ions:Encounter for screening colonoscopy Drink 2 liters (half the bottle) the day before colonoscopy and 2 liters (remaining prep) 6 hours prior to colonoscopy appointment. 4000 mL 09/16/2023 Active lisinopriL (PRINIVIL; ZESTRIL) 5 mg tabletIndications :HTN (hypertension) Take 1 Tablet (5 mg) by mouth once daily. 90 Tablet 3 02/11/2024 Active amLODIPine (NORVASC) 2.5 mg tabletIndications :Hypertension, unspecified type Take 1 Tablet (2.5 mg) by mouth once daily. 90 Tablet 3 08/10/2023 4 Discontinue d(*Med complete/Re gimen complete/Le rowdy of care change) Active Problems Problem Noted Date Diagnosed Date Sensorineural hearing loss, bilateral 01/14/2017 Screen for colon cancer 08/12/2010 Overview (08/12/2010): Colonoscopy 07/2010 normal repeat in 10 years Acute gastritis without mention of hemorrhage Reflux esophagitis 06/06/2009 Overview (08/13/2009): EGD 07/2008 Reactive gastropathy Rectocele 05/29/2008 Urinary incontinence, stress 05/29/2008 Encounters Date Type Department Care Team Description 02/17/2024 Telephone [facility] [address] [place] [address] Colleen Du MD Other; REQUESTING CALL BACK 02/16/2024 Nurse Triage [facility] [address] [place] [address] Colleen Du MD Arm Pain/problem 02/11/2024 10:55 AM CDT Office Visit [facility] [address] [place] [address] Colleen Du MD Pre-Op Exam (02/23/[address] Inman); Constipation (Comes out very small, B/P med? ); Immunization/Injection 02/11/2024 Travel 01/10/2024 1:05 PM CDT Office Visit [facility] [address] [place] [address] Sangeetha Avalos MD Ear Problem (Feeling plugged, been having issues for awhile with pcp ) 01/10/2024 Travel 12/08/2023 Orders Only [facility] Scanner 1 scan: (1-Ord) TAREEN DERMATOLOGY, EXCISION-FUSIFORM, 12/08/2023 from Last 3 Months Immunizations Name Administration Dates Next Due AMB INFLUENZA IIV3 (AGE 65+ YRS) PF (Flu Clinic Only) 02/12/2018 AMB Influenza, IIV3 (Age >=3 years) Preserve Free (Flu Clinic Only) 02/10/2012 AMB Influenza, IIV3 (Age >=3 years)(Flu Clinic Only) 02/09/2011,03/06/2010,02/08/2009,03/27 COVID-19 VACCINE SPIKEVAX (M ODERNA 50MCG/0.5ML) 12YO+ PFS 02/11/2024 COVID-19 vaccine (Pfizer-Bio NTech 30mcg/0.3mL) PF, MDV 07/06/2020 Influenza A (H1N1), Inactivated 06/06/2009 Influenza A (H1N1), Inactiva coby (Age >=3 Years) 06/06/2009 Influenza, High-dose Inactivated 024,02/04/2016,01/29/2015,01/25 Influenza, High-dose Quadriv alent Inactivated 02/15/2023,03/09/2022,01/25/2021 Influenza, IIV3 (Age 6-35 mos) 02/10/2012,2010 Influenza, IIV3 (Age >=3 years) 01/25/20 13,03/06/2010,02/08/2009,03/27,02/25/2007,03/01/2006,03/14/2005 ,03/09/2003 Influenza, IIV4 06/06/2009 Influenza, IIV4 (=>6mos) MDV 01/22/2020 Influenza, Inactivated IIV3 (Age 65+ Years) Preserv Free 01/27/2019,02/04/2017 Pneumococcal Poly,23-Valent (Pneumovax) 02/10/2012 Pneumococcal conj 13-Valent (Prevnar 13) 02/04/2016 RSV, Recombinant ADJ Reconst ituted (Arexvy 120MCG/0.5mL) 07/27/2023 Td (Age >=7 Years) 12/07/2018,08/19/1994 Tdap 05/14/2008 [...] (Age 37) [place] Brother 3 Barker Alive Brother 4 Ronald (Age 62) Cancer [...] Past Smokeless Tobacco: Never Tobacco Cessation:Counseling Given: No Alcohol Use Standard Drinks/Week Comments Yes 1.7 (1 standard drin k = 0.6 oz pure alcohol) very little-- 1-2 drinks per week PHQ-2 Answer Date Recorded PHQ-2 TOTAL SCORE 0 05/11/2023 Social Connections Answer Date Recorded Do you often feel lonely or isolated from those around you? 0 02/11/2024 Financial Resource Strain Answer Date R ecorded Difficulty of Paying Living Expenses 3 02/11/2024 Difficulty of Paying Living Expenses Not on file 02/11/2024 Food Insecurity Answer Date Recorded Do you worry your food will run out before you are able to buy more? 1 02/11/2024 Transportation Needs Answer Date Record ed Does lack of transportation keep you from medica l appointments? 1 02/11/2024 Does lack of transportation keep you from work, meetings or getting things that you need? 1 02/11/2024 Housing Stability Answer Date Recorded What is your housing situation today? 1 02/11/2024 Sex and Gender Information Value Date Recorded Sex Assigned at Not on file Gender Identity Not on file Sexual Orientation Not on file Obstetrics History Para Term AB IAB SAB Ectopic Multiple Livin g Live Births 2 2 2 2 Date Outcome GA Total Labor Labor/2nd/3rd Weight Sex Type Anes PTL Teresa A1 A5 Name Clin Term Term Last Filed Vital Signs Vital Sign Reading Time Taken Comments Blood Pressure 155/78 02/11/2024 11:02 AM CDT Pulse 66 02/11/2024 11:02 AM CDT Temperature 37.4 ??C (99.3 ??F) 01/10/2024 1:00 PM CD T Respiratory Rate 18 09/28/2014 11:15 AM CDT Oxygen Saturation 100% 02/11/2024 10:58 AM CDT Inhaled Oxygen Concentration - - Weight 68.9 kg (152 lb) 02/11/2024 10:58 AM CDT Height 161.9 cm (5' 3.75) 05/11/2023 8:02 AM CS T Body Mass Index 26.3 05/11/2023 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 Plan of Treatment Upcoming Encounters Date Type Department Care Team (Late st Contact Info) Description 03/14/2024 11:20 AM 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 DELIVERY WORKER Office Visit [facility] [address] [place] [address] Colleen Du MD [address] [place] [address] Health Maintenance Due Date Last Done Comments BMI (ht and wt on same day) [...] screening for ag e 18-79 Completed 03/09/2019 DEXA/DXA scan for age 65+ Completed 2023, 03/13/2020, 02/23/2017, Additional history exists RSV vaccine for adults or Completed 07/27/2023 Influenza for age 65+ Completed 01/13/2024 , 02/15/2023, 03/09/2022, Additional history exists COVID-19 vaccine series Completed 02/11/20 24, 03/30/2022, 01/27/2021, Additional history exists Procedures Procedure Name Priority Date/Time Associated Diagnosis Comments BASIC METABOLIC PANEL Routine 02/11/2024 12:34 PM CDT HTN (hypertension) CBC WITH AUTO DIFFERENTIAL Routine 02/11/2024 12:34 PM CDT HTN (hypertension) SCAN-OPERATIVE/PROCED URE REPORT 12/08/2023 12:00 AM CDT XR DXA BONE DENSITY 2 SITES AXIAL Routine 05/13/2023 11:05 AM 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 DELIVERY WORKER Menopause ANTI HCV Routine 03/09/2019 9:40 AM VEHICLE DELIVERY WORKER Encounter for hepatitis C screening test for low risk patient from Last 3 Months or Most Recently Relevant to Health Maintenance Results * CBC AND DIFFERENTIAL (02/11/2024 12:34 PM CDT) WHITE BLOOD CELL COUNT 5.8 3.8 - 10.8 Thousand/u L [facility] RED BLOOD CELL COUNT 4.25 3.80 - 5.10 Million/uL [facility] HEMOGLOBIN 13.5 11.7 - 15.5 g/dL [facility] HEMATOCRIT 40.7 35.0 - 45.0 % [facility] MCV 95.8 80.0 - 100.0 fL [facility] MCH 31.8 27.0 - 33.0 pg [facility] MCHC 33.2 32.0 - 36.0 g/dL [facility] Comment: For adults, a slight decrease in the calculated MCHC value (in the range of 30 to 32 g/dL) is most likely not clinically significant; however, it should be interpreted with caution in correlation with other red cell parameters and the patient's clinical condition. RDW 12.4 11.0 - 15.0 % [facility] PLATELET COUNT 291 140 - 400 Thousand/u L [facility] MPV 10.3 7.5 - 12.5 fL [facility] ABSOLUTE NEUTROPHILS 3,254 1,500 - 7,800 cells/uL [facility] ABSOLUTE LYMPHOCYTES 2,007 850 - 3,900 cells/uL [facility] ABSOLUTE MONOCYTES 458 200 - 950 cells/uL [facility] ABSOLUTE EOSINOPHILS 52 15 - 500 cells/uL [facility] ABSOLUTE BASOPHILS 29 0 - 200 cells/uL [facility] NEUTROPHILS 56.1 % [facility] LYMPHOCYTES 34.6 % [facility] MONOCYTES 7.9 % [facility] EOSINOPHILS 0.9 % [facility] BASOPHILS 0.5 % [facility] Blood BLOOD SPECIMEN / Unknown 02/11/2024 12:34 PM CDT 02/11/2024 12:35 PM CDT Narrative [facility] - 02/12/2024 3:52 AM CDT FASTING:YES FASTING: YES Colleen Du MD HEMATOLOGY [facility] [address] [place] [address], [facility] [address] [place] [address] * BASIC METABOLIC PANEL (02/11/2024 12:34 PM CDT) GLUCOSE 96 65 - 99 mg/dL [facility] Comment: ? Fasting reference interval UREA NITROGEN (BUN) 13 7 - 25 mg/dL [facility] CREATININE 0.77 0.60 - 1.00 mg/dL [facility] EGFR 78 > OR = 60 mL/min/1. 73m2 [facility] BUN/CREATININE RATIO SEE NOTE: 6 - 22 (calc) [facility] Comment: ?? Not Reported: BUN and Creatinine are within ?? reference range. ? SODIUM 141 135 - 146 mmol/L [facility] POTASSIUM 4.7 3.5 - 5.3 mmol/L [facility] CHLORIDE 106 98 - 110 mmol/L [facility] CARBON DIOXIDE 27 20 - 32 mmol/L [facility] ELECTROLYTE BALANCE 8 7 - 17 mmol/L (calc) [facility] CALCIUM 9.7 8.6 - 10.4 mg/dL [facility] Blood BLOOD SPECIMEN / Unknown 02/11/2024 12:34 PM CDT 02/11/2024 12:35 PM CDT Narrative [facility] - 02/12/2024 5:04 AM CDT FASTING:YES FASTING: YES Colleen Du MD CHEMISTRY [facility] [address] [place] [address], [facility] [address] * SCAN-OPERATIVE/PROCEDURE REPORT (12/08/2023 12:00 AM CDT) Scanner OTHER * (ABNORMAL) XR DXA BONE DENSITY 2 SITES AXIAL (05/13/2023 11:05 AM VEHICLE DELIVERY WORKER) Anatomical Region Laterality Modality Spine, HIPS, HIPL, HIPR Other Impressions 05/25/2023 2:25 PM VEHICLE DELIVERY WORKER Osteopenia. RECOMMENDATIONS: The National Osteoporosis Foundation recommends [...] just at 3%. ?? Kristen Chu PA-C [facility] 05/25/2023 Narrative 05/25/2023 2:25 PM VEHICLE DELIVERY WORKER For Patients: Results are automatically released to your [facility] ([facility]) account once available, in compliance with federal regulations. This means that you may see your results before your provider has had a chance to review them. Please allow 2-3 business days for your provider to comment on the results. XR DXA Bone Mineral Density (BMD) EXAM LOCATION: [address] [address] PATIENT NAME: Berna Hernandez DATE OF : [...] two scanners are made by the same surgical territory manager. PROCEDURE: Dual-energy x-ray absorptiometry performed with routine [...] Z-Score: + 2.9 Change from prior in 2020: ??Increase 4.2%. RESULTS FEMUR Left femoral neck [...] fracture: 3.0%. Colleen Du MD DEXA * ANTI HCV (03/09/2019 9:40 AM VEHICLE DELIVERY WORKER) HEPATITIS C ANTIBODY Non-React mayda Non-React mayda 03/09/2019 5:43 PM VEHICLE DELIVERY WORKER [place] [facility] Comment:Antibodies to HCV no t detected; does not exclude the possibility of exposure to HCV. Blood BLOOD SPECIMEN / Unknown Venipuncture / Unknown 03/09/2019 9:40 AM VEHICLE DELIVERY WORKER 03/09/2019 9:40 AM VEHICLE DELIVERY WORKER Colleen Du MD SEND OUTS [facility] 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
--- NOTE | 2024-02-23 07:33 | W.PM.H&PU ---
History & Physical Update History & Physical Update H&P Reviewed and patient assessed: No changes noted
[2024-02-23] MEDS: ACETAMINOPHEN 500 MG TABLET 1000 MG PO (07:46)
[2024-02-23] MEDS: OXYCODONE (CR) 10 MG TAB.ER.12H PO (07:46)
--- NOTE | 2024-02-23 08:31 | SUR.PREOP ---
TIME?OUT:?0827 PT/RN/MDA?VERIFICATION?OF?SURGICAL?SITE,?PROCEDURE,?AND?CONSENT OBTAINED?PRIOR?TO?INVASIVE?PROCEDURE.
[2024-02-23] MEDS: SODIUM CHLORIDE 0.9 % (FLUSH) 10 ML SYRINGE IVF (08:37)
[2024-02-23] MEDS: 0.9 % SODIUM CHLORIDE 500 ML 500 ML 100 ML IV ×2 (08:39→10:32)
[2024-02-23] MEDS: TRANEXAMIC ACID 100 MG/ML INJ 1000 MG IV (08:58)
[2024-02-23] MEDS: CEFAZOLIN 2 GM in 0.9 % SODIUM CHLORIDE Mini-bag 100 ML IVPB (09:01)
--- NOTE | 2024-02-23 09:39 | W.ANESCHARGE ---
Anesthesia Charges Start Date/Time Anesthesia Start Date: 02/23/24 Anesthesia Start Time: 08:49 Stop Date/Time Anesthesia Stop Date: 02/23/24 Anesthesia Stop Time: 10:38 Summary Extremes of Age - Over 70 or under 1: MDA
--- NOTE | 2024-02-23 09:40 | W.PM.NB ---
Nerve Block Nerve Block Time Seen by Provider: 08:30 Date Seen: 02/23/24 Type of block requested by surgeon for post-operative analgesia: adductor canal Side: right Time out performed: Yes Verification of patient name: Yes Verification of date of : Yes Site marking: site marked Name of person performing procedure: Sunil Continuous monitoring Was continuous monitoring of O2 sat, B/P, laboratory monitor, recorded every 15 minutes?: Yes Procedure Checklist: sterile prep, needles and gloves Ultrasound guided. Images saved: Yes Medications given in 5ml increments after negative aspiration: Marcaine %: 0.25 mL: 15 Needle gauge: 20 Precedex (mcg): 25 Patient tolerated procedure well: Yes Block Charges Block Charge (with Pro Fee): Femoral Nerve Use of Ultrasound Machine for Block: Yes- US Guidance/pain block
--- NOTE | 2024-02-23 09:40 | W.PM.NB ---
Nerve Block Nerve Block Time Seen by Provider: 08:30 Date Seen: 02/23/24 Type of block requested by surgeon for post-operative analgesia: geniculars Side: right Time out performed: Yes Verification of patient name: Yes Verification of date of : Yes Site marking: site marked Name of person performing procedure: Sunil Continuous monitoring Was continuous monitoring of O2 sat, B/P, desk monitor, recorded every 15 minutes?: Yes Procedure Checklist: sterile prep, needles and gloves Ultrasound guided. Images saved: Yes Medications given in 5ml increments after negative aspiration: Marcaine %: 0.25 mL: 9 Needle gauge: 25 Patient tolerated procedure well: Yes Block Charges Block Charge (with Pro Fee): Genicular Nerve Block
--- NOTE | 2024-02-23 10:09 | PM.ORPRC ---
Procedure Note Date of procedure: 02/23/24 Procedure: PREOPERATIVE DIAGNOSIS: 1. Right knee osteoarthritis, primary, severe POSTOPERATIVE DIAGNOSIS: 1. Right knee osteoarthritis, primary, severe PROCEDURE: 1. Right total knee arthroplasty - subvastus SURGEON: Otis Inman MD. ETHYLBENZENE OXIDIZER: ZHANNA Trevino - Of note, a skilled assistant librarian was critical for this case to aid in patient positioning, tissue retraction, limb manipulation/positioning, and closure. ANESTHESIA: Spinal anesthetic IMPLANTS: DePuy J&J all cemented TKA - Attune PS femur size 3 standard, size 3 tibia, 5 mm poly spacer, 35 mm patella TOURNIQUET: 80 minutes at 250 torr EBL: 50 ml COMPLICATIONS: None evident INDICATIONS: The patient is a pleasant 78-year-old female who has experienced severe right knee pain and difficulty bearing weight. Workup included x-rays which revealed severe osteoarthrosis in the knee. Given the deformity, the dysfunction, and the pain, as well as the failure of nonoperative management, recommendation was made for surgery. FINDINGS: Full-thickness chondral loss diffusely throughout the lateral compartment. To lesser degree medial and patellofemoral compartments. Degenerative meniscus pathology again lateral greater than medial. Large effusion upon entering the joint. Osteophytosis diffusely throughout the knee all 3 compartments. DESCRIPTION OF PROCEDURE: Following a thorough discussion of risks, benefits, and alternatives consent was obtained and the right knee was marked. The patient was brought to the operating room and placed supine on the operating table. Induction of anesthesia was undertaken. 1 g IV Ancef and 1 g tranexamic acid was administered within 1 hr of incision preoperatively. Proper time-out was performed identifying proper patient, site, procedure. The operative extremity was prepped and draped in the appropriate sterile fashion using ChloraPrep after the patient was positioned supine with all bony prominences well padded. A longitudinal, anterior, midline skin incision was made starting approximately 3cm proximal to the superior pole of the patella and advanced distal to the tibial tubercle. A subvastus approach was utilized. A medial subperiosteal sleeve was created with knife, ocampo elevator and curved osteotome. The retropatellar fatpad was resected and the synovium in the suprapatellar pouch excised to visualize the anterior femoral cortex. Femoral preparation was performed via an intramedullary guide. Step drill allowed access into the femoral canal. The distal cutting guide was placed with 5? of valgus and 10 mm cut on the distal femur. Femur was sized using a anterior referencing guide in 3? of external rotation (although trans epicondylar axis and Whitesides line was also utilized for reference). This found have a best fit with the sizing noted above. The 4 in 1 cutting block was then placed, and the distal femur shaped accordingly. The box cut was then created and the trial implant inserted to confirm appropriate fit. We turned our attention to the proximal tibia. Extramedullary guide was utilized for cutting with the goal of being 90 degree cut from the mechanical axis of the tibia in the varus/valgus plane utilizing tibial crest as the primary alignment. Initially a 3 mm resection was performed from the medial tibial plateau. Ultimately, balancing was achieved in both flexion and extension in both varus and valgus. The knee was able to achieve full extension as well comfortably. The patella was initially measured and found have a thickness of 21 mm. It was resected back to approximately 13.5 mm. It was sized to be a best fit with as noted above. This was drilled, trial placed. All trials were placed and found to have an excellent stability and balance. At this stage, trial implants were removed, the knee was thoroughly irrigated with normal saline, and the cement was mixed. After irrigation, the knee was thoroughly dried, and cement placed, with the real tibial and femoral implants placed along with the patella. Trial poly spacer was placed and confirmed to have excellent range of motion and full extension, and the real poly spacer opened and inserted. All extra cement was removed, and a 3 min Betadine soak performed. Finally, a final irrigation round with normal saline was performed. Closure performed with 0 Vicryl and #0 Stratafix for the quad tendon/retinaculum. 2-0 Vicryl for the subcutaneous and 4-0 Stratafix for subcuticular closure. Dressings were applied and the patient was awoken from anesthesia after the tourniquet deflated and transferred the PACU in stable condition. A skilled assistant librarian was critical for this case to aid in patient positioning, tissue retraction, bone exposure, limb manipulation/positioning, patient safety, and closure. PLAN: 1. Weight bear as tolerated operative extremity. 2. 23 hr perioperative antibiotics. 3. Ice. 4. PT/OT consults for ambulation assistance/mobility education. 5. Social work consult for discharge planning. 6. DVT prophylaxis with at SCDs and aspirin twice daily.
--- NOTE | 2024-02-23 10:16 | CRLHL7_ITS ---
For Patients: As a result of the Cures Act, medical imaging exams and procedure reports are released immediately into your electronic medical record. You may view this report before your referring provider. If you have questions, please contact your health care provider. Indication: Postop Technique: Two views right knee Findings/Impression: Hardware from a right total knee arthroplasty is in satisfactory position. Bone alignment is normal. No sign of acute fracture. Postop changes are within normal limits. Dictated by Rocco Lange MD @ 02/23/2024 1:14:36 PM (Electronically Signed)
--- NOTE | 2024-02-23 10:37 | P.ANES_ITS ---
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
--- NOTE | 2024-02-23 10:58 | SUR.PHASEI ---
Patient awake when arrived to PACU, no pain or nausea, x-rays taken. Patient taking ice chips.
--- NOTE | 2024-02-23 11:07 | SUR.PHASEI ---
Patient can wiggle legs just a little. Comfortable, no pain or nausea. Patient meets anesthesia PACU dischrge criteria.
[2024-02-23] MEDS: ACETAMINOPHEN 325 MG TABLET PO (14:30)
--- NOTE | 2024-02-23 14:56 | SUR.PHASEII ---
Patient ambulatory to restroom with walker and stand by assist. Patient voided. Patient to physical therapy via wheelchair with family.
[2024-02-23] MEDS: IBUPROFEN 200 MG TABLET 400 MG PO (15:45)
== END 2024-02-23 16:04 | disposition home or self-care (01) ==
LOC: OR 06:58
PROVIDERS: PCP Family Medicine; Visit Provider Orthopaedic Surgery Sports Medicine
PROC: (CPT 27447; principal; 2024-02-23 09:15)
DX: M17.11 Unilateral primary osteoarthritis, right knee (principal); G89.18 Other acute postprocedural pain
CPT/HCPCS: 27447; 01402; 64447; 64454; 73560; 76942; 97110; 97116; 97161; 97530; 99100; A9270; C1776; J0665; J0690; J1100; J2704; J7030

== ENCOUNTER 2024-03-02 15:19 | Outpatient (CLI) | payer MEDICARE, BC, SELFPAY ==
--- OUTSIDE RECORDS SUMMARY | 2024-03-02 15:23 | XMS_ITS | Clinical Summary ---
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 Name Role Phone Colleen Du MD Primary Care Provide r Sanjana Recinos Unavailable Allergies Active Allergy Reactions Criticality Noted Date [...] Encounters Date Type Department Care Team Description 02/23/2024 Orders Only [facility] Scanner 1 scan: (1-Ord) [facility], XR KNEE RT 2V, 02/23/2024 02/17/2024 Telephone [facility] [address] [place] [address] Colleen Du MD Other; REQUESTING CALL BACK 02/16/2024 Nurse Triage [facility] [address] [place] [address] Colleen Du MD Arm Pain/problem 02/11/2024 10:55 AM CDT Office Visit [facility] [address] [place] [address] Colleen Du MD Pre-Op Exam (02/23/[address] Inman); Constipation (Comes out very small, B/P med? ); Immunization/Injection 02/11/2024 Travel 01/10/2024 1:05 PM CDT Office Visit [facility] [address] [place] [address] Sangeetha Avalos MD Ear Problem (Feeling plugged, been having issues for awhile with pcp ) 01/10/2024 Travel 12/08/2023 Orders Only [facility] Scanner 1 scan: (1-Ord) [facility] DERMATOLOGY, EXCISION-FUSIFORM, 12/08/2023 from Last 3 Months Immunizations Name Administration Dates Next Due AMB INFLUENZA IIV3 (AGE 65+ YRS) PF (Flu Clinic Only) 02/12/2018 AMB Influenza, IIV3 (Age >=3 years) Preserve Free (Flu Clinic Only) 02/10/2012 AMB Influenza, IIV3 (Age >=3 years)(Flu Clinic Only) 02/09/2011,03/06/2010,02/08/2009,03/27 COVID-19 VACCINE SPIKEVAX (M ODERNA 50MCG/0.5ML) 12YO+ PFS 02/11/2024 COVID-19 vaccine ([employer] 30mcg/0.3mL) PF, MDV 07/06/2020 Influenza A [...] (Age 37) [place] H emmorage Brother 3 Hazel Alive Brother 4 Ronald (Age 62) Cancer [...] Body Mass Index 26.3 05/11/2023 8:02 AM CRYSTALIZER OPERATOR Plan of Treatment Upcoming Encounters Date Type Department Care Team (Late st Contact Info) Description 03/14/2024 11:20 AM CRYSTALIZER OPERATOR Office Visit [facility] [address] [place] [address] Colleen Du MD [address] [place] [address] Health Maintenance Due Date Last Done Comments [...] Additional history exists COVID-19 vaccine series Completed 02/11/20, 03/30/2022, 01/27/2021, Additional history exists Procedures Procedure Name Priority Date/Time Associated Diagnosis Comments SCAN-RADIOLOGY REPORT 02/23/2024 12:00 AM CDT BASIC METABOLIC PANEL Routine 02/11/2024 12:34 PM CDT HTN (hypertension) CBC WITH AUTO DIFFERENTIAL Routine 02/11/2024 12:34 PM CDT HTN (hypertension) SCAN-OPERATIVE/PROCED URE REPORT 12/08/2023 12:00 AM CDT XR DXA BONE DENSITY 2 SITES AXIAL Routine 05/13/2023 11:05 AM CRYSTALIZER OPERATOR Menopause ANTI HCV Routine 03/09/2019 9:40 AM CRYSTALIZER OPERATOR Encounter for hepatitis C screening test for low risk patient from Last 3 Months or Most Recently Relevant to Health Maintenance Results * SCAN-RADIOLOGY REPORT (02/23/2024 12:00 AM CDT) Anatomical Region Laterality Modality Other Scanner OTHER * CBC AND DIFFERENTIAL (02/11/2024 12:34 PM CDT) WHITE BLOOD CELL COUNT 5.8 3.8 - 10.8 Thousand/u L [facility] RED BLOOD CELL COUNT 4.25 3.80 - 5.10 Million/uL [facility] HEMOGLOBIN 13.5 11.7 - 15.5 g/dL [facility] HEMATOCRIT 40.7 35.0 - 45.0 % [facility] MCV 95.8 80.0 - 100.0 fL [facility] MCH 31.8 27.0 - 33.0 pg [facility] MCHC 33.2 32.0 - 36.0 g/dL [facility] Comment: For adults, a slight [...] PM CDT 02/11/2024 12:35 PM CDT Narrative [facility] - 02/12/2024 3:52 AM CDT FASTING:YES FASTING: YES Colleen Du MD HEMATOLOGY [employer] [address] [address] [place] [address], [facility] [address] [place] [address] * BASIC METABOLIC PANEL (02/11/2024 12:34 PM CDT) GLUCOSE 96 65 - 99 mg/dL [facility] Comment: ? Fasting reference interval UREA NITROGEN (BUN) 13 7 - 25 mg/dL [facility] CREATININE 0.77 0.60 - 1.00 mg/dL [facility] EGFR 78 > OR = 60 mL/min/1. 73m2 [facility] BUN/CREATININE RATIO SEE NOTE: (calc) [facility] Comment: ?? Not Reported: BUN and Creatinine are within ?? reference range. ? SODIUM 141 135 - 146 mmol/L [facility] POTASSIUM 4.7 3.5 - 5.3 mmol/L [employer] CHLORIDE 106 98 - 110 mmol/L [employer] CARBON DIOXIDE 27 20 - 32 mmol/L [employer] ELECTROLYTE BALANCE 8 7 - 17 mmol/L (calc) [facility] CALCIUM 9.7 8.6 - 10.4 mg/dL [facility] Blood BLOOD SPECIMEN / Unknown 02/11/2024 12:34 PM CDT 02/11/2024 12:35 PM CDT Narrative [employer] [facility] - 02/12/2024 5:04 AM CDT FASTING:YES FASTING: YES Colleen Du MD CHEMISTRY [employer] [facility] [address] [place] [address], [employer] [address] [place] [address] * SCAN-OPERATIVE/PROCEDURE REPORT (12/08/2023 12:00 AM CDT) Scanner OTHER * (ABNORMAL) XR DXA BONE DENSITY 2 SITES AXIAL (05/13/2023 11:05 AM CRYSTALIZER OPERATOR) Anatomical Region Laterality Modality Spine, HIPS, HIPL, HIPR Other Impressions 05/25/2023 2:25 PM CRYSTALIZER OPERATOR Osteopenia. RECOMMENDATIONS: The National Osteoporosis Foundation recommends [...] just at 3%. ?? Kristen Chu PA-C [facility] 05/25/2023 Narrative 05/25/2023 2:25 PM CRYSTALIZER OPERATOR For Patients: Results are automatically released to your [facility] account once available, in compliance with federal regulations. This means that you may see your results before your provider has had a chance to review them. Please allow 2-3 business days for your provider to comment on the results. XR DXA Bone Mineral Density (BMD) EXAM LOCATION: [address] [address] PATIENT NAME: Berna Hernandez DATE OF : [...] two scanners are made by the same wall attendant. PROCEDURE: Dual-energy x-ray absorptiometry performed with routine [...] DEXA * ANTI HCV (03/09/2019 9:40 AM CRYSTALIZER OPERATOR) Pathologist [facility] HEPATITIS C ANTIBODY Non-React mayda Non-React mayda 03/09/2019 5:43 PM CRYSTALIZER OPERATOR [facility] Comment:Antibodies to HCV no t detected; does not exclude the possibility of exposure to HCV. Blood BLOOD SPECIMEN / Unknown Venipuncture / Unknown 03/09/2019 9:40 AM CRYSTALIZER OPERATOR 03/09/2019 9:40 AM CRYSTALIZER OPERATOR Colleen Du MD S[facility] [address] [place] [address], from Last 3 Months or Most Recently Relevant to Health Maintenance Advance Directives Documents on File Type Date Recorded Patient [employer] Player Expl anation Healthcare Directive 11/19/2015 8:24 AM [facility], 06/19/2009 Care Teams Pellet Mill Operator Relationship Specialty Start Date End Date Colleen Du MD [address] [place] [address] PCP - General 09/07/05 Sanjana Recinos AuD [address] [place] [address] Audiology 01/14/17
--- NOTE | 2024-03-02 15:30 | CRLHL7_ITS ---
For Patients: As a result of the Century Cures Act, medical imaging exams and procedure reports are released immediately into your electronic medical record. You may view this report before your referring provider. If you have questions, please contact your health care provider. INDICATION: Acute postprocedural pain TECHNIQUE: Venous duplex ultrasound of the right lower extremity utilizing compression with bañuelos-scale, color Doppler, and spectral Doppler imaging. COMPARISON: None FINDINGS: There is no sonographic evidence of deep vein thrombosis in the right common femoral, deep femoral, superficial femoral, popliteal, posterior tibial, peroneal, or contralateral common femoral veins. There is no visualized superficial vein thrombosis. The soft tissues are unremarkable. IMPRESSION: No deep vein thrombosis in the right lower extremity. Dictated by Brandon Tafoya MD @ 03/02/2024 4:24:44 PM (Electronically Signed)
== END 2024-03-02 15:20 | disposition home or self-care (01) ==
LOC: US 15:20
PROVIDERS: PCP Family Medicine; Visit Provider Physician Assistant Surgical
DX: G89.18 Other acute postprocedural pain (principal); I82.401 Acute embolism and thrombosis of unspecified deep veins of right lower extremity
CPT/HCPCS: 93971

== ENCOUNTER 2024-05-24 11:15 | Outpatient (RCR) | payer MEDICARE, BC, SELFPAY ==
--- NOTE | 2024-02-16 10:11 | PT.OPEX ---
[facility] PT [facility] Outpatient Eval Start: 02/16/24 07:49 Freq: Status: Active Protocol: Document 02/16/24 10:01 DEE DEE (Rec: 02/16/24 10:09 DEE DEE [id number]) E-signed By Acacia Aguirre, PT Physical Therapy Outpatient Evaluation Insurance Information Recert Due Date 05/12/24 Insurance Name Medicare B,Blue Cross/Blue Shield Medical Diagnosis Right knee OA Pre and post-op right TKA DOS 01/11/24 Treating Diagnosis Right knee pain, limited knee ROM, antalgic gait, muscle weakness Referring MD Storm Coronel (Ignacio) reports to PT with primary complaint of right knee pain. Started 8 years ago after a fall. Continues to be independent with ambulation. Performing stairs with step to ascend. Lives alone in [place] with basement. Laundry in basement. Daughters planning to take turns staying with her following surgery and has friends in the area. Has a 4WW , extended tub bench for tubshower, toilet riser. Goal to be able to walk normal to minimize back pain as well and eventual return to [address]. PMH: L RCR Pain Comments 12/03 Date of Last Physician Visit 01/11/24 Current Work Status Retired Objective Other/Pertinent Objective R knee ROM: 10-109 Quad set: good SLR: x10 with 10 deg contracture TTP lateral joint line Functional Test Performed & Score Gait: no AD, decreased stance time L LE Assessment Assessment/Impression Ignacio is a 78 year old female presenting to PT for preparation of upcoming R TKA DOS 02/23/24 d/t end stage OA. Session focused on education of post-operative fall prevention precautions, transfers, gait with AD, stair negotiation, post-operative exercises. She is able to verbalize precautions and demonstrated independence with exercises, gait and stairs. She is appropriate to proceed with surgery at this time. Primary Functional Limitations Walking, standing, squatting/ bending, sleeping, sitting Plan of Care Rehabilitation Potential Good Physical Therapy Goals By end of session today, patient will... Demonstrate appropriate gait pattern with 4WW to utilize post surgery for optimal safety when ambulating Demonstrate ability to negotiate stairs using appropriate stair pattern post surgery for optimal safety when at home and in community Verbalize understanding of most appropriate home set up including needed equipment for optimal safety and recovery post surgery Be independent in HEP program to show ability to perform appropriate exercises post surgery Treatment Plan/Direct Interventions Gait Training,Ice/Cold/ Vasopneumatic,Joint Mobilization,Manual Therapy, Neuromuscular Re-ed,Self-Care/ Home Management,Therapeutic Activities,Therapeutic Exercises Frequency/Duration Re-evaluate following surgery Patient Will Be Discharged From Therapy Completion of LTG(s), Independent w/HEP, Independently Progressing Evaluation Billing Untimed Code Treatment Minutes 20 Complexity Low Certification Information Initial Certification Date 02/16/24 Ending Certification Date 05/12/24 Provider Signature Required Yes Provider Signature Shows Agreement With POC & Medical Necessity Physician NPI Number Write NPI# Here Physician Comment/Change : Physician Signature & Date Requested Please Sign/Date Here
--- NOTE | 2024-05-24 12:03 | PT.OPDNX ---
PT [place] Outpatient Daily Note PT [facility] Outpatient Daily Note Start: 02/16/24 07:49 Freq: Status: Active Protocol: Document 05/24/24 08:53 DEE DEE (Rec: 05/24/24 12:03 KLIsaias [id number]) E-signed By Acacia Aguirre, PT PT OP Daily Progress Note Visit Information Note Type Recert/Progress Note,Discharge Note Visit Number [id number] Physician Authorized Visits Eval and treat Insurance Information Recert Due Date 05/24/24 Insurance Name Medicare B,Blue Cross/Blue Shield Medical Diagnosis Right knee OA Pre and post-op right TKA DOS 02/23/24 Treating Diagnosis Right knee pain, limited knee ROM, antalgic gait, muscle weakness Referring MD Storm Mcdonnell Subjective Berna (Ignacio) reports to PT 6 weeks since previous PT session (12 weeks s/p R TKA) to assess progress during that time period on her own. She notes overall she is very pleased with her progress and has gradually ramped up her activity that she does not feel limited with anything at this time in terms of her knee . She does note some ongoing sciatic issues on the left side which she may bring up at her physical tomorrow and get a referral for PT. Pain Comments 0/10 Date of Surgery (If applicable) 02/23/24 Objective Other/Pertinent Objective R knee ROM 05/24/24: 3-116 final AROM MMT: -knee flexion 5/5 -knee extension 5/5 -hip flexion 5/5 -hip abduction 4/5 B Functional Test Performed & Score LEFS IE: LEFS 05/24/24: 69/80 Patient Instructed in Risks/Benefits Yes Self Care Management Training Self-Care Activity Minutes (minutes) 15 Self Care Management Training Reassessment of objective measures and progress to date Thorough review of HEP and ongoing exercises to focus on at this time as well as frequency Discussed potential causes of sciatic pain and possible discussion to PCP for PT referral if needed Treatment Minutes Timed Code Treatment Minutes 15 Total Treatment Time 15 Billing Units Self-Care Activity Units 1 Assessment/Impression Assessment/Impression Pt presents with signs and symptoms consistent with s/p 12 weeks R TKA. DOS: 02/23/24. Current ROM 3-126 AROM ( previous session 8-108). She is demonstrating excellent progress on her own and reports of 0/10 knee pain. Discussed ongoing exercises and frequency of HEP upon d/c today. Patient notes understanding and feels comfortable being independent with her HEP at this time. No further PT scheduled or warranted s/p R TKA. Plan of Care Physical Therapy Goals Goals updated 02/28/24: By 4 weeks Pt will be able to ascend/ descend 1 flight of stairs in order to perform ADLs pain free. MET Pt will demonstrate at least 5 -110 knee ROM in order to perform all ADLs including don /doffing shoes/socks MET By 8 weeks Pt will exhibit 9 pt improvement in LEFS Outcome measure to demonstrate functional improvement and progress towards goals. MET Pt will tolerate gradual progression back to ADLs with <2/10 pain MET Patient will transition from walker to cane to independent gait with normal mechanics MET Daily Plan of Care Discharge Recertification Information Initial Certification Date 02/16/24 Recertification Start Date 05/24/24 Recertification Due Date 05/24/24 Reasons to Continue Skilled Therapy 1 final check in with PT to assess ongoing ROM and strength deficits however upon examination on this date she is no longer demonstrating functional deficits and is appropriate to d/c at this time. Patient in agreeance with plan. Rehabilitation Potential excellent Continued Plan of Care and Interventions Self care Provider Signature Shows Agreement With POC & Medical Necessity Physician Comment/Change Comment or Changes Physician NPI Number #
== END 2024-09-21 23:59 | disposition home or self-care (01) ==
PROVIDERS: PCP Family Medicine; Visit Provider Orthopaedic Surgery Sports Medicine
DX: M17.11 Unilateral primary osteoarthritis, right knee (principal); Z47.1 Aftercare following joint replacement surgery; Z96.651 Presence of right artificial knee joint; Z51.89 Encounter for other specified aftercare
CPT/HCPCS: 97110; 97140; 97161; 97164; 97535

== ENCOUNTER 2024-09-28 10:15 | Outpatient (CLI) | payer MEDICARE, BC, SELFPAY | END 2024-09-28 10:16 | disposition home or self-care (01) | LOC: NFLDREF 09-30 07:12 | PROVIDERS: PCP Family Medicine; Referring Provider Family Medicine; Visit Provider Physician Assistant | DX: N39.0 Urinary tract infection, site not specified (principal) | CPT/HCPCS: 87086 ==

== ENCOUNTER 2025-03-05 11:09 | Day surgery (SDC) | payer MEDICARE, BC, SELFPAY ==
[2025-03-05] VITALS (11 sets, daily range): BP systolic 111–184; BP diastolic 60–116; PULSE 66–85; RESP 14–16; TEMP 36.6–37.2; O2SAT 96–99; BMI 27.4
[2025-03-05] MEDS: LACTATED RINGERS 1000 ML 1,000 ML 100 ML IV (11:15)
[2025-03-05] MEDS: SODIUM CHLORIDE 0.9 % (FLUSH) 10 ML SYRINGE IVF (11:37)
--- NOTE | 2025-03-05 12:03 | W.PM.H&PU ---
History & Physical Update History & Physical Update H&P Reviewed and patient assessed: No changes noted
--- NOTE | 2025-03-05 13:21 | P.ANES_ITS ---
Anesthesia Charges Start Date/Time Anesthesia Start Date: 03/05/25 Anesthesia Start Time: 12:51 Stop Date/Time Anesthesia Stop Date: 03/05/25 Anesthesia Stop Time: 14:01 Summary Extremes of Age - Over 70 or under 1: MDA Coding CPT Codes CPT Codes: ANESTH KNEE JOINT SURGERY - 94746 ([id number]) QX - SECURITY DELIVERY SPECIALIST SVC W/ MD MED DIRECTION, QK - RN TRANSFER 2-4 CNCRNT ANES PROC, P3 - PATIENT W/SEVERE SYS DISEASE Additional Codes: Summary - Extremes of Age - Over 70 or under 1: MDA ([id number])
--- NOTE | 2025-03-05 13:21 | W.ANESCHARGE ---
Anesthesia Charges Start Date/Time Anesthesia Start Date: 03/05/25 Anesthesia Start Time: 12:51 Stop Date/Time Anesthesia Stop Date: 03/05/25 Anesthesia Stop Time: 14:01 Summary Extremes of Age - Over 70 or under 1: MDA Coding CPT Codes CPT Codes: ANESTH KNEE JOINT SURGERY - 71262 ([id number]) QX - WORKFORCE INVESTMENT ACT CAREER MANAGER SVC W/ MD MED DIRECTION, QK - TECHNICAL PROJECT LEAD 2-4 CNCRNT ANES PROC, P3 - PATIENT W/SEVERE SYS DISEASE Additional Codes: Summary - Extremes of Age - Over 70 or under 1: MDA ([id number])
[2025-03-05] MEDS: ROPIVACAINE 0.5% 30 ML 150 MG INJECTION (13:51)
--- NOTE | 2025-03-05 14:05 | P.ANES_ITS ---
Anesthesia Charges Start Date/Time Anesthesia Start Date: 03/05/25 Anesthesia Start Time: 12:51 Stop Date/Time Anesthesia Stop Date: 03/05/25 Anesthesia Stop Time: 14:01 Summary Extremes of Age - Over 70 or under 1: TUNNEL HEADING SUPERVISOR Coding CPT Codes CPT Codes: ANESTH KNEE JOINT SURGERY - 91338 ([id number]) P3 - PATIENT W/SEVERE SYS DISEASE, QX - TUNNEL HEADING SUPERVISOR SVC W/ MD MED DIRECTION, QK - PARKING CONTROL OFFICER 2-4 CNCRNT ANES PROC Additional Codes: Summary - Extremes of Age - Over 70 or under 1: TUNNEL HEADING SUPERVISOR ([id number])
--- NOTE | 2025-03-05 14:05 | W.ANESCHARGE ---
Anesthesia Charges Start Date/Time Anesthesia Start Date: 03/05/25 Anesthesia Start Time: 12:51 Stop Date/Time Anesthesia Stop Date: 03/05/25 Anesthesia Stop Time: 14:01 Summary Extremes of Age - Over 70 or under 1: RESIDENTIAL SERVICE TECHNICIAN Coding CPT Codes CPT Codes: ANESTH KNEE JOINT SURGERY - 64793 ([id number]) P3 - PATIENT W/SEVERE SYS DISEASE, QX - RESIDENTIAL SERVICE TECHNICIAN SVC W/ MD MED DIRECTION, QK - ATHLETIC DIRECTOR 2-4 CNCRNT ANES PROC Additional Codes: Summary - Extremes of Age - Over 70 or under 1: RESIDENTIAL SERVICE TECHNICIAN ([id number])
--- NOTE | 2025-03-06 16:52 | PM.ORPRC ---
Procedure Note Date of procedure: 03/06/25 Procedure: PREOPERATIVE DIAGNOSIS: 1. Right knee patellar clunk following prior TKA POSTOPERATIVE DIAGNOSIS: 1. Right knee patellar clunk following prior TKA PROCEDURE: 1. Right knee arthroscopic extensive excisional debridement including debridement of superior pole patella patellar clunk scar, medial and lateral gutter scar tissue, anterior fat pad scar tissue, etc. SURGEON: Otis Inman M.D. EXTRUSION OPERATOR: Boyd Swanson PA-C. Of note, an assistant director of public works was critical for this case to aid in patient positioning, knee manipulation, instrument exchange, and closure. ANESTHESIA: Spinal EBL: 2ml TOURNIQUET: 30 min at 250 torr COMPLICATIONS: None evident INDICATIONS: The patient is a pleasant 79-year-old female who has previously undergone a right total knee arthroplasty. While their pain from the preoperative arthritic state has improved, they are now battled some patellar clunk phenomenon in the postoperative time. Initially this was simply an audible noise/palpable feeling, but is become more of a symptomatic process. As such, knee arthroscopy for debridement was recommended. FINDINGS: TKA implants all stable. No evidence of significant scratching or pathology. Regarding the scar, there was abundant scar in the suprapatellar pouch especially at the superior pole patella consistent with patellar clunk. There is also significant scar bands across the medial and lateral gutters especially near the tibial tray overlying the polyethylene component on the edges. All this underwent excisional debridement. DESCRIPTION OF PROCEDURE: After a thorough discussion of risks, benefits, and alternatives, the patient was brought to the operating room and placed upon the operating table. Induction of anesthesia was undertaken as previously noted. 1 g IV Ancef was administered within 1 hr of incision preoperatively. Appropriate time-out was performed identifying proper patient, site, and procedure. The right lower extremity was prepped and draped in the appropriate sterile fashion using ChloraPrep. The limb was exsanguinated and tourniquet inflated. Anterolateral and anteromedial portals were established with an 11 blade, and a diagnostic arthroscopy was performed. This identified the findings as noted above. Following the diagnostic arthroscopy, an extensive excisional debridement was performed with an excaliber shaver and a 50 degree [place] cautery device. Following the debridement, the knee was placed through range of motion found have no significant crepitation. At this stage, the shaver was reinserted into the suprapatellar pouch and all remaining debris was evacuated. Instruments were removed, excess fluid was drained, and closure performed with 3-0 Nylon. Dressings were applied, the tourniquet deflated, and the patient was awoken from anesthesia and transferred to the PACU in stable condition. PLAN: 1. Weightbear as tolerated operative extremity. Crutch / walker ambulation assistance PRN. 2. Ice, oral analgesics (e.g. acetaminophen and/or ibuprofen, and Oxycodone for pain as needed. 3. Knee range of motion and quad sets/straight leg raise regularly 4. Follow up with PA visit in 1-2 weeks for a wound check and possibly to initiate physical therapy.
== END 2025-03-05 15:19 | disposition home or self-care (01) ==
PROVIDERS: PCP Family Medicine; Visit Provider Orthopaedic Surgery Sports Medicine
PROC: (CPT 29870; principal; 2025-03-05 13:15)
DX: M25.861 Other specified joint disorders, right knee (principal); Z96.651 Presence of right artificial knee joint
CPT/HCPCS: 29877; 01400; 99100; J0690; J1100; J2371; J2405; J2704; J2795; J3010; J3490; J7120

== ENCOUNTER 2025-04-10 08:30 | Outpatient (RCR) | payer MEDICARE, BC, SELFPAY ==
--- NOTE | 2025-03-12 10:47 | PT.OPEX ---
PT [place] Outpatient Eval PT [facility] Outpatient Eval Start: 03/12/25 08:45 Freq: Status: Active Protocol: Document 03/12/25 08:46 NLR (Rec: 03/12/25 10:42 NLR [id number]) E-signed By Kandace Robledo DPT Physical Therapy Outpatient Evaluation Insurance Information Recert Due Date 06/10/25 Insurance Name Medicare B,Blue Cross/Blue Shield Insurance Primary Colleen Du MD Information/Comments Medical Diagnosis Z98.890 Post procedural state (R TKA scope debridement) Right knee patellar clunk following prior TKA 02/23/24 Treating Diagnosis M25.561 Pain right knee M25.661 Stiffness right knee M62.551 Weakness R thigh Imaging Report PROCEDURE: Right knee arthroscopic extensive Information excisional debridement including debridement of superior pole patella patellar clunk scar, medial and lateral gutter scar tissue, anterior fat pad scar tissue. FINDINGS: TKA implants all stable. No evidence of significant scratching or pathology. Regarding the scar, there was abundant scar in the suprapatellar pouch especially at the superior pole patella consistent with patellar clunk. There is also significant scar bands across the medial and lateral gutters especially near the tibial tray overlying the polyethylene component on the edges. All this underwent excisional debridement. Referring MD Otis Inman MD Subjective Preferred Name IGNACIO Pierre arrives for PT evaluation about a week post R knee debridement for scar tissue buildup resulting in a clunk one year post TKA on 02/23/24. She arrives today doing quite well, stating she is not having much pain, mostly just a stiffness. She has been using her ice machine. She states she was doing very well until she caught her right toe on something at temple which led to a progressively worsening clunk. Pain Comments 0-5/10 more at night (burning/stinging pain) a little bit of hurt with bending. Mostly just feels stiff. Date of Last 03/05/25 Physician Visit Date of Next 03/16/25 Physician Visit Date of Surgery (If 03/05/25 applicable) Current Work Status Retired Occupation , retired. She is independent at home. She can dress herself independently. Her home is one level with a basement. Laundry is in the basement. Precautions Weight Bearing Full Weight Bearing Status Therapy Limitations/ Not Limited Systems Review Objective Other/Pertinent R knee ROM 5-110 (stiff) Objective Independent slightly antalgic gait pattern R thigh strength 3+ to 4/5 Assessment Assessment/ Ignacio is a 79-year-old female who presents for skilled Impression PT evaluation presenting with right knee stiffness and weakness which is consistent with R arthralgic scar tissue debridement in the setting of insidious onset post TKA clunk. Patient is an appropriate candidate for skilled physical therapy to target deficits described above. Skilled PT intervention is necessary to achieve goals as stated. D/C plan and criteria is for patient to achieve the goals as outlined or until max rehab potential is met. Patient was agreeable with plan of care and goals established. This evaluation is of low complexity due to the stable nature of the patient?s presentation as well as the low comorbidities and medical factors included in this evaluation. Primary Functional Difficulty walking without a slight limp, difficulty Limitations doing stairs step over step. Plan of Care Rehabilitation Excellent Potential Rehabilitation Patient is otherwise healthy and motivated to improve Potential Comments in order to return to prior level of function. Physical Therapy 1. Patient will be independent with home exercise Goals program as instructed, modified and progressed by physical therapist in order to be independently and actively participating in their rehabilitation and return to prior level of function. Goal to be achieved by 06/08/2025. 2. Patient will demonstrate ability to walk for 60 minutes(s) without significant increase in pain greater than 2/10 to allow patient to be able to safely and independently return to participation in desired level of function with daily activities such walking for exercise without pain or difficulty. Goal to be achieved by 06/08/2025. 3. Patient will ascend/descend 2 full flight(s) of stairs with aact-cfdq-[id number] pattern without significant increase in difficulty or pain over 2/10 allowing for safe and independent mobility through their home/work environment. Goal to be achieved by 06/08/2025. Coordination/ Referral Source Communication With Frequency/Duration 1X/week for 4-5 weeks Patient Will Be Completion of LTG(s),Skills Plateau,Independent w/HEP, Discharged From Independently Progressing Therapy Discharge Plan DC with HEP Comments Evaluation Billing Untimed Code 15 Treatment Minutes PT Eval No Charge No Complexity Low Certification Information Initial 03/12/25 Certification Date Ending Certification 06/10/25 Date Provider Signature Yes Required Provider Signature POC & Medical Necessity Shows Agreement With Physician NPI Number Write NPI# Here Physician Comment/ : Change Physician Signature Please Sign/Date Here & Date Requested
--- NOTE | 2025-03-12 10:48 | PT.OPDNX ---
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 FINDINGS: TKA implants all stable. No evidence of significant scratching or pathology. Regarding the scar, there was abundant scar in the suprapatellar pouch especially at the superior pole patella consistent with patellar clunk. There is also significant scar bands across the medial and lateral gutters especially near the tibial tray overlying the polyethylene component on the edges. All this underwent excisional debridement. Referring MD Otis Inman MD Subjective Preferred Name IGNACIO Pierre arrives for PT evaluation about a week post R knee debridement for scar tissue buildup resulting in a clunk one year post TKA on 02/23/24. She arrives today doing quite well, stating she is not having much pain, mostly just a stiffness. She has been using her ice machine. She states she was doing very well until she caught her right toe on something at [employer] which led to a progressively worsening clunk. Pain Comments 0-5/10 more at night (burning/stinging pain) a little bit of hurt with bending. Mostly just feels stiff. Date of Last 03/05/25 Physician Visit Date of Next 03/16/25 Physician Visit Date of Surgery (If 03/05/25 applicable) Precautions Weight Bearing Full Weight Bearing Status Home Exercise Home Exercise Assessed and educated in HEP today. PDF was printed for Comments patient. Instructions were provided for accessing HEP on [employer] on phone. (HELD Y SLIDER AND MONSTER WALK FOR NEXT VISIT) Access Code: [email or web address] URL: [email or web address] Date: 03/12/2025 Prepared by: Kandace Robledo Exercises - Seated Knee Flexion Stretch - 2-3 x daily - 1-2 reps - 20-60 second hold - range of motion/stretch exercise type - Weighted Knee Extension Stretch - 2-3 x daily - 1-3 reps - 1-5 minute hold - stretch/range of motion exercise type - Seated Hip Adduction Isometrics with Ball - 2-3 x daily - 2 sets - 10 reps - 2-3 seconds hold - strength exercise type - Sitting Knee Extension with Resistance - 2-3 x daily - 2 sets - 10 reps - 2-3 second hold - strength exercise type - Seated Hamstring Curl with Anchored Resistance - 2-3 x daily - 2 sets - 10 reps - 2-3 seconds hold - strength exercise type - Standing Terminal Knee Extension at Wall with Ball - 2-3 x daily - 2 sets - 10 reps - 2-3 seconds hold - strength exercise type - Alternating Knee Flexion/Extension Stretch on Stairs - 2-3 x daily - 10-20 reps - 5-10 second hold - range of motion/stretch exercise type - Supported Controlled Step Up - 2-3 x daily - 2 sets - 10 reps - 2-3 seconds hold - strength exercise type - Supported Controlled Forward Step Down - 2-3 x daily - 2 sets - 10 reps - 2-3 seconds hold - strength exercise type - Supported Y Slider - 2-3 x daily - 2 sets - 10 reps - 2-3 seconds hold - strength/balance exercise type - Monster Walks - 2-3 x daily - 2-4 reps - distance 10 -30 feet - strength exercise type - Recumbent Bike - 3-5 x weekly - strength/endurance exercise type - 5-20 minutes length of ride Objective Other/Pertinent R knee ROM 5-110 (stiff) Objective Independent slightly antalgic gait pattern R thigh strength 3+ to 4/5 Patient Instructed Yes in Risks/Benefits Therapeutic Exercise Therapeutic Exercise 30 Minutes (minutes) Therapeutic Exercise - Recumbent bike seat 4 level 3 for 5 minutes, full : To Restore revolutions Functional Status - Seated Knee Flexion Stretch at step - Weighted Knee Extension Stretch - 5# - Sitting Knee Extension with Resistance - green band - Seated Hamstring Curl with Anchored Resistance - green band - Standing Terminal Knee Extension at Wall with Ball - Alternating Knee Flexion/Extension Stretch on Stairs - Supported Controlled Step Up 6 Step - Supported Controlled Forward Step Down 6 step Treatment Minutes Untimed Code 15 Treatment Minutes Timed Code Treatment 30 Minutes Total Treatment Time 45 Billing Units Therapeutic Exercise 2 Units Assessment/Impression Assessment/ Ignacio is a 79-year-old female who presents for skilled Impression PT evaluation presenting with right knee stiffness and weakness which is consistent with R arthralgic scar tissue debridement in the setting of insidious onset post TKA clunk. Patient is an appropriate candidate for skilled physical therapy to target deficits described above. Skilled PT intervention is necessary to achieve goals as stated. D/C plan and criteria is for patient to achieve the goals as outlined or until max rehab potential is met. Patient was agreeable with plan of care and goals established. This evaluation is of low complexity due to the stable nature of the patient?s presentation as well as the low comorbidities and medical factors included in this evaluation. Primary Functional Difficulty walking without a slight limp, difficulty Limitations doing stairs step over step. Plan of Care Physical Therapy 1. Patient will be independent with home exercise Goals program as instructed, modified and progressed by physical therapist in order to be independently and actively participating in their rehabilitation and return to prior level of function. Goal to be achieved by 06/08/2025. 2. Patient will demonstrate ability to walk for 60 minutes(s) without significant increase in pain greater than 2/10 to allow patient to be able to safely and independently return to participation in desired level of function with daily activities such walking for exercise without pain or difficulty. Goal to be achieved by 06/08/2025. 3. Patient will ascend/descend 2 full flight(s) of stairs with [id number] pattern without significant increase in difficulty or pain over 2/10 allowing for safe and independent mobility through their home/work environment. Goal to be achieved by 06/08/2025. Daily Plan of Care Continue per POC Daily Plan of Care R TKA debridement one year s/p R TKA (02/23/24) on 02/17) with Dr. Storm Mckeon knee ROM 5-110 Advance weight bearing standing, encourage recumbent bike at [address], add Monster and Y Slider
--- NOTE | 2025-04-10 09:19 | PT.OPDNX ---
PT [facility] Out[facility] Daily Note PT [facility] Daily Note Start: 03/12/25 08:45 Freq: Status: Active Protocol: Document 04/10/25 08:36 NLR (Rec: 04/10/25 09:17 NLR [id number]) E-signed By Kandace Robledo DPT PT OP Daily Progress Note Visit Information Note Type Discharge Note Visit Number 3 Insurance Information Recert Due Date 06/10/25 Insurance Name Medicare B,Blue Cross/Blue Shield Insurance Primary Colleen Du MD Information/Comments Medical Diagnosis Z98.890 Post procedural state (R TKA scope debridement) Right knee patellar clunk following prior TKA 02/23/24 Treating Diagnosis M25.561 Pain right knee M25.661 Stiffness right knee M62.551 Weakness R thigh Imaging Report PROCEDURE: Right knee arthroscopic extensive Information excisional debridement including debridement of superior pole patella patellar clunk scar, medial and lateral gutter scar tissue, anterior fat pad scar tissue. FINDINGS: TKA implants all stable. No evidence of significant scratching or pathology. Regarding the scar, there was abundant scar in the suprapatellar pouch especially at the superior pole patella consistent with patellar clunk. There is also significant scar bands across the medial and lateral gutters especially near the tibial tray overlying the polyethylene component on the edges. All this underwent excisional debridement. Referring MD Otis Inman MD Subjective Preferred Name IGNACIO Pierre reports she was sick for two weeks and ended up having low back pain from coughing. Her back pain is now better and she is no longer sick, but she admits she wasn't able to work on her knee very much and wasn' t able to go to [facility]. She states she is doing everything in her daily life and going up and down the stairs alot to do laundry. [place] . Pain Comments 0-2/10 stiffness, some tenderness at R pes anserine. Date of Last 03/05/25 Physician Visit Date of Next 03/16/25 Physician Visit Date of Surgery (If 03/05/25 applicable) Precautions Weight Bearing Full Weight Bearing Status Home Exercise Home Exercise Updated and finalized [facility] with patient today. Comments Access Code: [email or web address] URL: [email or web address] Date: 04/10/2025 Prepared by: Kandace Robledo Exercises - Seated Hamstring Stretch - 2-3 x daily - 1-2 reps - 30-60 seconds hold - stretch exercise type - Seated Knee Flexion Stretch - 2-3 x daily - 1-2 reps - 20-60 second hold - range of motion/stretch exercise type - Weighted Knee Extension Stretch - 2-3 x daily - 1-3 reps - 1-5 minute hold - stretch/range of motion exercise type - Seated Hip Adduction Isometrics with Ball - 2-3 x daily - 2 sets - 10 reps - 2-3 seconds hold - strength exercise type - Sitting Knee Extension with Resistance - 2-3 x daily - 2 sets - 10 reps - 2-3 second hold - strength exercise type - Seated Hamstring Curl with Anchored Resistance - 2-3 x daily - 2 sets - 10 reps - 2-3 seconds hold - strength exercise type - Standing Terminal Knee Extension at Wall with Ball - 2-3 x daily - 2 sets - 10 reps - 2-3 seconds hold - strength exercise type - Alternating Knee Flexion/Extension Stretch on Stairs - 2-3 x daily - 10-20 reps - 5-10 second hold - range of motion/stretch exercise type - Supported Controlled Step Up - 2-3 x daily - 2 sets - 10 reps - 2-3 seconds hold - strength exercise type - Supported Controlled Forward Step Down - 2-3 x daily - 2 sets - 10 reps - 2-3 seconds hold - strength exercise type - Supported Y Slider - 2-3 x daily - 2 sets - 10 reps - 2-3 seconds hold - strength/balance exercise type - Monster Walks - 2-3 x daily - 2-4 reps - distance 10 -30 feet - strength exercise type - Recumbent Bike - 3-5 x weekly - strength/endurance exercise type - 5-20 minutes length of ride Objective Other/Pertinent 03-19-2025: Objective R knee AROM on stairs: 0-118 03-12-2025: R knee ROM 5-110 (stiff) Independent slightly antalgic gait pattern R thigh strength 3+ to 4/5 Patient Instructed Yes in Risks/Benefits Therapeutic Exercise Therapeutic Exercise 25 Minutes (minutes) Therapeutic Exercise - Added B hamstring stretch : To Restore - Recumbent bike seat 4 level 3 for 7 minutes, full Functional Status revolutions - Seated Knee Flexion Stretch at step - Weighted Knee Extension Stretch - 5# - Sitting Knee Extension with Resistance - green band - Seated Hamstring Curl with Anchored Resistance - green band - Standing Terminal Knee Extension at Wall with Ball - Alternating Knee Flexion/Extension Stretch on Stairs - Supported Controlled Step Up 6 Step - Supported Controlled Forward Step Down 6 step -Monster walks -- GTB 4 x 10 yds - 3-way slider x 10 reps ea -Sit to stands from standard chair x 10 reps -- cues for no off-shift Treatment Minutes Timed Code Treatment 25 Minutes Total Treatment Time 25 Billing Units Therapeutic Exercise 2 Units Assessment/Impression Assessment/ Ignacio is doing well. She was sick for two weeks and Impression was unable to do her HEP much, but she is doing stairs and walking a lot with some minimal stiffness and tenderness at pes anserine. Added hamstring stretches today. She plans to return to [address] [place] [address] this week to ride the recumbent bike. She offers no additional questions at this time, goals have been achieved and HEP has been finalized. DC with HEP. Primary Functional None. Limitations Plan of Care Physical Therapy 1. Patient will be independent with home exercise Goals program as instructed, modified and progressed by physical therapist in order to be independently and actively participating in their rehabilitation and return to prior level of function. Goal to be achieved by 06/08/2025. ACHIEVED 2. Patient will demonstrate ability to walk for 60 minutes(s) without significant increase in pain greater than 2/10 to allow patient to be able to safely and independently return to participation in desired level of function with daily activities such walking for exercise without pain or difficulty. Goal to be achieved by 06/08/2025. ACHIEVED 3. Patient will ascend/descend 2 full flight(s) of stairs with [id number] pattern without significant increase in difficulty or pain over 2/10 allowing for safe and independent mobility through their home/work environment. Goal to be achieved by 06/08/2025. ACHIEVED Daily Plan of Care Continue per POC Daily Plan of Care R TKA debridement one year s/p R TKA (02/23/24) on 02/17) with Dr. Storm Mckeon knee ROM 0-125 DC with HEP Discharge Note Discharge Summary Ignacio is doing well. She was sick for two weeks and was unable to do her HEP much, but she is doing stairs and walking a lot with some minimal stiffness and tenderness at pes anserine. Added hamstring stretches today. She plans to return to [address] this week to ride the recumbent bike. She offers no additional questions at this time, goals have been achieved and HEP has been finalized. DC with HEP. Date of First Visit 03/02/25 for Therapy Date of Last Visit 04/10/25 for Therapy Initial Primary Difficulty walking without a slight limp, difficulty Functional doing stairs step over step. Limitations Initial Pain Level 0-5/10 Pain Level at 0-2/10 Discharge Recommendations/ Met All Therapy Goals Reason for Discharge Discharge DC with HEP Instructions Thank You For This Thank you for this physical therapy referral. Please Referral do not hesitate to contact us with any questions or concerns.
== END 2025-04-24 17:24 | disposition home or self-care (01) ==
PROVIDERS: PCP Family Medicine; Visit Provider Orthopaedic Surgery Sports Medicine
DX: Z48.89 Encounter for other specified surgical aftercare (principal); Z51.89 Encounter for other specified aftercare
CPT/HCPCS: 97110; 97161